=== PATIENT | female | born 1970 | race Caucasian/White ===

== ENCOUNTER → 2021-10-05 09:49 | Outpatient (CLI) | payer OTHER, SELFPAY ==
--- NOTE | ~2021-10-05 | CT_ITS ---
EXAMINATION: CT pelvis wo con DATE: 10/05/2021 10:16 INDICATION: Right inguinal mass/swelling. TECHNIQUE: High resolution computed tomography (CT) of the pelvis was performed without intravenous c ontrast. Additional sagittal and coronal reconstructions were performed. Automated exposure control a nd iterative reconstruction technique were employed. The dose-length product was 731.50 mGy-cm. COMPARISON: None FINDINGS: Status post appendectomy with several surgical clips. The tip of the cecum. Visualized portion of the bowels are normal. Bladder is normal. The uterus is not identified and has likely been surgically re sected. No free fluid in the pelvis. No inguinal hernia or other abnormal masses or fluid collections identified. Mild osteoarthritis at the bilateral hips, sacral iliac joints and lower lumbar facet diony ints. IMPRESSION: 1. No pathologically enlarged lymphadenopathy, inguinal hernia or other abnormal masses or fluid mike ections identified. Reviewed, dictated and finalized at location B. IMPRESSION: 1. No pathologically enlarged lymphadenopathy, inguinal hernia or other abnorma l masses or fluid collections identified.
== END ==
PROVIDERS: PCP Family Medicine Sports Medicine; Visit Provider Surgery
DX: R19.09 Other intra-abdominal and pelvic swelling, mass and lump (principal); M16.0 Bilateral primary osteoarthritis of hip; M47.817 Spondylosis without myelopathy or radiculopathy, lumbosacral region
CPT/HCPCS: 72192

== ENCOUNTER 2023-02-07 18:38 | Emergency (ER) | payer OTHER, SELFPAY ==
--- NOTE | ~2023-02-07 | XR_ITS ---
EXAMINATION: XR chest 2V DATE: 02/07/2023 19:06 INDICATION: Chest pain. TECHNIQUE: Frontal and lateral views of the chest were obtained. COMPARISON: Chest single view 07/29/2007 FINDINGS: There is no pneumonia, pleural effusion, or pneumothorax. The heart size is normal. Surgica l clips in the right upper quadrant are likely from cholecystectomy. IMPRESSION: 1. No acute cardiopulmonary disease. Reviewed, dictated and finalized at location E.
--- NOTE | ~2023-02-07 | CT_ITS ---
Non-contrast Head CT History: Dizziness, numbness Technique: Axial non-contrast imaging of the brain was performed. Dose reduction technique was used on this scan by utilizing automated exposure control and iterative reconstruction technique. The dose -length product (DLP) was 605.33 mGy-cm. Findings: There is no evidence of intracranial hemorrhage, mass lesion, or acute infarct. Brain par enchyma appears normal. The ventricles and subarachnoid spaces are normal in size. The calvarium ap pears normal. The visualized paranasal sinuses and mastoid air cells are clear. Impression: No significant abnormality seen. Reviewed, dictated and finalized at location . Impression: No significant abnormality seen.
--- NOTE | 2023-02-07 18:39 | ECG_ITS ---
Measurements Intervals [place] Rate: 66 P: 4 [place]: 177 QRS: -9 QRSD: 79 T: -8 QT: 397 QTc: 416 Interpretive Statements SINUS RHYTHM LOW QRS VOLTAGE IN PRECORDIAL LEADS CANNOT RULE OUT SEPTAL INFARCT, AGE INDETERMINATE INFERIOR INFARCT, AGE INDETERMINATE ABNORMAL ECG NO PREVIOUS ECG AVAILABLE FOR COMPARISON Electronically Signed On 02-08-2023 6:41:32 CDT by Jim Adams D.O.
[2023-02-07 18:41] VITALS: BP 107/57; PULSE 70; RESP 18; TEMP 36.3
[2023-02-07 21:10] VITALS: BP 112/73; PULSE 69; RESP 18; TEMP 36.3; O2SAT 96
[2023-02-07 23:12] LABS: Basophils Percent Auto 0.1 % (0.2-1.2); Eosinophils Absolute Auto 0.3 K/mm3 (0-0.3); Eosinophils Percent Auto 4.3 % (0-4.4); Hematocrit 39.7 % (37.0-47.0); Hemoglobin 12.7 g/dL (12.0-15.0); Immature Granulocyte Absolute 0.01 K/mm3 (0.00-0.031); Immature Granulocyte Percent A 0.1 % (0-0.5); Lymphocytes Absolute Auto 2.64 K/mm3 (0.9-3.2); Lymphocytes Percent Auto 39.4 % (18.3-44.2); Mean Corpuscular Hemoglobin 28.2 pg (26-34); Mean Corpuscular Volume 88.2 fl (80-100); Mean Platelet Volume 9.9 fl (7.4-10.4); Monocytes Absolute Auto 0.6 K/mm3 (0.1-0.6); Monocytes Percent Auto 8.4 % (2.6-8.5); Neutrophils Absolute Auto 3.2 K/mm3 (1.3-6.7); Neutrophils Percent Auto 47.7 % (45.5-73.1); Platelet Count Result 358 k/mm3 (150-375); Red Cell Distribution Width 14.7 % (11.5-14.5); White Blood Count 6.7 K/mm3 (4.5-10.0)
[2023-02-07 23:23] LABS: Alanine Aminotransferase 30 U/L (6-35); Albumin Level 4.3 g/dL (3.5-5.1); Alkaline Phosphatase 92 U/L (38-126); Anion Gap 7 mmol/L (8-16); Aspartate Amino Transferase 27 U/L (14-36); Bilirubin,Total 0.3 mg/dL (0.2-1.3); Blood Urea Nitrogen 17 mg/dL (7-17); Carbon Dioxide 27 mmol/L (22-30); Chloride 104 mmol/L (98-107); Estimated CRCL calculation 91 ml/min; Estimated Glomerular Filt Rate > 60; Glucose 108 mg/dL (65-110); Lipase 116 U/L (23-300); Potassium 4.4 mmol/L (3.4-5.0); Sodium 138 mmol/L (137-145)
[2023-02-07 23:25] LABS: Prothrombin Time 13.1 Seconds (11.1-14.7)
[2023-02-07 23:26] LABS: Partial Thromboplastin Time 34.8 SECONDS (22.3-36.8)
[2023-02-07 23:34] LABS: Troponin I < 0.012 ng/mL (0.000-0.034)
[2023-02-07] MEDS: ASPIRIN 81 MG CHEWABLE TABLET 324 MG PO (23:51)
[2023-02-07 23:58] VITALS: PULSE 65; RESP 19; O2SAT 98
[2023-02-08] VITALS (8 sets, daily range): BP systolic 104–106; BP diastolic 75–76; PULSE 61–68; RESP 15–20; O2SAT 98–100
[2023-02-08 00:59] LABS: Troponin I < 0.012 ng/mL (0.000-0.034)
--- NOTE | 2023-02-08 01:04 | ED.GENADULT ---
HPI - General Adult General Chief complaint: Chest Pain Stated complaint: chest pain Time Seen by Provider: 02/07/23 23:56 History of Present Illness HPI narrative: Patient 52-year-old female presents the emergency department with chief complaint of chest pain. Patient reports that the symptoms started around 10 or 11:00 this morning reports she also at that time had a change in the sensation of the left side of her face and the left upper chest patient states that she thought that she had facial asymmetry but looked at her face in the mirror and noticed no facial droop. The patient states that she has history of cardiomyopathy that was nonischemic the patient reports that she has had no new shortness of breath does report that her legs may have felt a little bit more swollen Related Data Home Medications Medication Instructions Recorded Confirmed aspirin 81 mg capsule 81 mg PO DAILY 09/25/21 10/20/21 cholecalciferol (vitamin D3) 125 125 mcg PO DAILY 09/25/21 10/20/21 mcg (5,000 unit) capsule empagliflozin 10 mg tablet 10 mg PO DAILY 09/25/21 10/20/21 (Jardiance) losartan 25 mg tablet 25 mg PO DAILY 09/25/21 10/20/21 metoprolol tartrate 50 mg tablet 50 mg PO BID 09/25/21 10/20/21 omeprazole 20 mg capsule,delayed 20 mg PO DAILY 09/25/21 10/20/21 release Allergies Allergy/AdvReac Type Severity Reaction Status Date / Time latex Allergy Unknown Rash Verified 02/07/23 23:55 sumatriptan [From Imitrex] AdvReac Intermediate Hallucinati Verified 02/07/23 23:55 ng Review of Systems Review of Systems: A 10 system review of systems was completed on the patient and is negative except for what is stated in the HPI. Nursing and ancillary documentation was reviewed. [facility] Past Medical History Medical History Heart disease Hypothyroid Surgical History Surgical History H/O abdominal hysterectomy H/O laparoscopy H/O removal of cyst cyst removal from neck cyst removal from wrist x2 History of cholecystectomy Family History Family History Father Hypertension Heart disease COPD (chronic obstructive pulmonary disease) Mother Acute myocardial infarction Cerebrovascular accident Social History Social History Smoking status: Never smoker Alcohol intake: current Alcohol use details: rare Living arrangements: with family Occupation/Education: occupation 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 HEAD: Normocephalic, atraumatic. EYES: PERRLA and EOMI. ENT: Nares clear, no rhinorrhea or epistaxis. Mucous membranes moist. NECK: Supple. CHEST: Clear to auscultation. No respiratory distress. HEART: Regular rate and rhythm. No murmur heard. Normal peripheral pulses. ABDOMEN: Soft, nontender, nondistended, normal active bowel sounds. EXTREMITIES: Normal range of motion. No edema. SKIN: Warm, dry, no rash. NEURO: No focal deficits. Alert and oriented x3. NIH 0 PSYCH: Normal mood and affect. Course Vital Signs Vital signs: Vital Signs Temperature 36.3 C L 02/07/23 18:41 Pulse Rate 70 02/07/23 18:41 Respiratory Rate 18 02/07/23 18:41 Blood Pressure 107/57 L 02/07/23 18:41 Temperature 36.3 C L 02/07/23 21:10 Pulse Rate 61 02/08/23 02:02 Respiratory Rate 19 02/08/23 02:02 Blood Pressure 106/75 02/08/23 02:01 Pulse Oximetry 100 02/08/23 02:02 Medical Decision Making [facility] Narrative Medical decision making narrative: Differential diagnosis includes ACS, atypical chest pain, CHF, The patient currently has an NIH of 0 the patient's symptoms began greater than 4 hours prior to arrival and the patient
[2023-02-08 01:30] LABS: NT Pro B Type Natriuretic Pept 58 pg/mL (19.9-100)
== END 2023-02-08 02:57 | disposition home or self-care (01) ==
PROVIDERS: Emergency Medicine; Emergency Provider Emergency Medicine; PCP Family Medicine Sports Medicine
DX: R07.89 Other chest pain (principal); I51.9 Heart disease, unspecified; E03.9 Hypothyroidism, unspecified; Z90.710 Acquired absence of both cervix and uterus; Z90.49 Acquired absence of other specified parts of digestive tract; Z79.82 Long term (current) use of aspirin; R94.31 Abnormal electrocardiogram [ECG] [EKG]
CPT/HCPCS: 36415; 70450; 71046; 80053; 83690; 83880; 84484; 85025; 85610; 85730; 93005; 99284; A9270

== ENCOUNTER 2024-11-05 13:57 | Outpatient (CLI) | payer OTHER, SELFPAY ==
--- NOTE | ~2024-11-05 | MM_ITS ---
EXAMINATION: MM screening gladys BI w elton HISTORY: Screening TECHNIQUE: Craniocaudal and mediolateral oblique 3-D tomosynthesis images were obtained and synthetic 2-D images were generated. CAD analysis was submitted and interpreted. COMPARISON: No prior mammogram is available for comparison at this institution. BREAST PARENCHYMAL COMPOSITION: Not dense: There are scattered areas of fibroglandular density. FINDINGS: There is no evidence of suspicious mass, calcification, or architectural distortion to sugg est malignancy in either breast. There has been no suspicious interval change. IMPRESSION: 1. No mammographic evidence of malignancy. 2. Recommend routine screening mammography in one year. BI-RADS Category 1: Negative Reviewed, dictated and finalized at location A.
--- OUTSIDE RECORDS SUMMARY | 2024-11-05 14:03 | XMS_ITS | Encounter Summary ---
Author Organization [facility] Healthcare Address [address] [place] [address] Care Team Providers Care Handle Machine Operator Name Role Phone Mayda Lantigua DO Primary Care Provider [phone] Joseph Farley MD PhD Unavailable + Cori Nunez RN Unavailable Unavaila Chrystal Coto RN Unavailable Unavailable Luis Angel Queen MD Unavailable Reason for Visit * Auth/Cert (Routine) Specialty Diagnoses / Procedures Referred By Contac t Referred To Contact Diagnoses MASS RIGHT GROIN Procedures WI EXC B9 LESION MRGN XCP SK TG T/A/L 0.6-1.0 CM EXCISIONAL BIOPSY MASS RIGHT GROIN Referral ID Status Reason Start Date Expiration Date Visits Re quested Visits Authorized [id number] 1 1 Encounter Details Date Type Department Care Team (Late st Contact Info) Description 11/04/2024 8:24 AM CDT Anesthesia Event [facility] OR [address] [place] [id number] Trung Ulrich MD [address] [place] [phone] Mikie Whitfield MD [address] [place] [address] [place] [address] Anesthesia Record Procedure Summary Procedure Name Responsible Anesthesiologist Anesthesia Start Time Anesthesia Stop Time EXCISIONAL BIOPSY MASS RIGHT GROIN (Right: Groin) Trung Ulrich MD 11/04/24 0824 11/04/24 1109 Events Date Time Event Comment 11/04/2024 0711 0824 An Start 0824 An Start Data 0824 In Room 0828 An Induction The patient was reevaluated immediately before moderate or deep sedation use and before anesthesia induction. 0829 An Intubation 0831 Anesthesia Ready 0843 Proc Start 1059 Proc Fin 1102 An Extubation 1102 an stop data 1104 Out of Room 1109 Handoff to RN I completed my handoff to the receiving nurse during which we: 1. Patient identified 2. Responsible provider identified 3. Pertinent medical history reviewed 4. Procedure type and surgical course discussed 5. Intraoperative anesthetic management and any significant issues discussed 6. Expectations and concerns for postop period discussed 7. Questions solicited from receiving nurse 8. Patient disposition at the time of handoff: No value filed. 1109 An Stop Meds Name Total midazolam 1 mg/mL 2 mg propofol 300 mg lidocaine (cardiac) syringe 2 % 3 mL fentaNYL 50 mcg/mL PF 200 mcg ondansetron PF 4 mg dexAMETHasone 4 mg/mL 4 mg phenylephrine injection 100 mcg/mL 600 m cg ceFAZolin (ANCEF) 1 gram/10 mL in steril e water (premix) 3,000 mg 3,000 mg Lactated Ringer's (LR) infusion 800 mL * Agents Name O2% N2O O2 N2O Air Sevoflurane Inspired Sevoflurane * Blood No blood administrations on file. Lines, Drains, and Airways Type Details Placement Removal Wound 11/04/24; 09; N; Incision; Groin; Anterior, Right 11/04/24 09 by Dinora Le RN Peripheral IV Placement Date: 11/04/24; Placement Time: 07; Catheter Size: 22 G; Orientation: Left, Posterior; Location: Hand; Site Prep: Chlorhexidine; Technique: Anatomical landmarks; Inserted by: Christopher ALVARADO; Insertion Attempts: 1; Patient Tolerance: Tolerated well; Removal Date: 11/04/24; Removal Time: 1505; Removal Reason: Discharge 11/04/24 0712 by Estephanie Purcell RN 11/04/24 1505 by Fatou Morgan RN Supraglottic Airway Placement Date: 11/04/24; Placement Time: 0834 (created via procedure documentation); Mask Ventilation: 0; Size: 4; Insertion Attempts: 1; Removal Date: 11/04/24; Removal Time: 11011/04/24 0834 by Vu Sands CRNA 11/04/24 110 by Vu Sands CRNA documented in this encounter Social History Tobacco Use Types Packs/Day Years Used Date Smoking Tobacco: Never Smokeless Tobacco: Never Alcohol Use Standard Drinks/Week Comments Yes 0 (1 standard drink = 0.6 oz pur e alcohol) socially only AUDIT-C Answer Date Recorded Q1: How often do you have a drink containing alcohol? Never 11/04/2024 Q2: How many drinks containi ng alcohol do you have on a typical day when you are drinking? Patient does not drink Q3: How often do you have si x or more drinks on one occasion? Never 11/04/2024 Personal Safety Answer Date Recorded Have you ever been in or are you currently in a harmful physical or emotional relationship or is someone making you feel afraid or unsafe? Denies 11/04/2024 Comments No Sex and Gender Information Value Date Recorded Sex Assigned at Not on file Legal Sex Female 8:25 PM BUILDING TECH Gender Identity Female 06/14/2021 9:07 AM BUILDING TECH Sexual Orientation Straight 11/25/2023 1: 45 PM CDT documented as of this encounter Functional Status documented as of this encounter OR Notes * Anesthesia Postprocedure Evaluation - Trung Ulrich MD - 11/04/2024 11:35 AM CDT Patient: Zelda Moore Procedure Summary Date: 11/04/24 Room / Location: [facility] / [facility] Anesthesia Start: 823 Anesthesia Stop: 1108 Procedure: EXCISIONAL BIOPSY MASS RIGHT GROIN (Right: Groin) Diagnosis: (MASS RIGHT GROIN) Surgeons: Luis Angel Queen MD Responsible Provider: Trung Ulrich MD Anesthesia Type: general ASA Status: 2 Anesthesia Type: general Anesthesia Post Evaluation Patient location during evaluation: PACU Patient participation: complete - patient participated Level of consciousness: fully awake Pain management: adequate Airway patency: adequate Cardiovascular status: acceptable Respiratory status: acceptable Hydration status: acceptable Pt is: normothermic Comments: BP 104/68. Temp 36.5 Pulse 74 Resp 12 SpO2 96% RA No notable events documented. * Anesthesia Procedure Notes - Vu Sands CRNA - 11/04/2024 8:34 AM CDTAssociated Order(s): Airway Airway Patient location: OR Urgency: elective Indications for airway management: anesthesia Difficult airway: no Staff: Placed by: MAKEUP ARTISTRY INSTRUCTOR: Vu Sands CRNA Emergent airway documentation: Risks and benefits discussed: yes Consent obtained: yes Consent given by: patient Airway prep: Preoxygenated: yes Patient position: sniffing Mask difficulty assessment: 0 - not attempted Spontaneous ventilation during airway: absent Sedation level during airway: deep Final airway details: Final airway type: supraglottic airway Final supraglottic airway: classic SGA size: 4 Number of attempts: 1 * Anesthesia Preprocedure Evaluation - Trung Ulrich MD - 11/04/2024 7:03 AM CDT Images from the original note were not included. Anesthesia Evaluation Zelda Moore is a 54 y.o. female EXCISIONAL BIOPSY MASS RIGHT GROIN (Right: Groin) * No Diagnosis Codes entered * HISTORY Past Medical History Information obtained from: patient and chart. Information obtained during: In Person Neurological Neuro/Psych system: negative Cardiovascular + Hypertension + CHF + Atrial fibrillation/flutter - + Other arrhythmia - PVCs. Comments: Echo 12/18/23 LA and RA normal in size. Normal LV size with mild global LV dysfunction. LVEF 51%. Normal LV wall thickness/mass. Strain quality is inadequate for accurate reporting. Normal RV size with normal RVSF. No significant valvular abnormalities. Diastiolic flow in distal aortic arch of unclear clinical significance. Diastolic function: Grade I, altered relax. w/N. LA pres. Aortic root normal in size. IVC is small and collapses which supports decreased venous pressures. Trace to small pericardial effusion vs fat pad. Unable to estimate PASP d/t inadequate TR jet. On c/w prior study on 02/28/22, LVSF appears similar. MCT 12/11/23 NSR w PVCs The patient's monitoring period was 12/11/2023 - 12/17/2023. Baseline sample showed Sinus Rhythm w/PVCs (1 in 1 min)/Artifact with a heart rate of 86.6 bpm. There were 0 critical, 0 serious, and 12 stable events that occurred. Echo 02/28/22 LV cavity size is normal. Concentric LV remodeling. Mild global LV syst dysfunction. EF 47%. Mild RV cavity enlargement. LA is normal. Mild MR. Normal Inferior vena cava. Small peric eff v. fat pad. CT Calcium 09/11/21 1. No evidence of calcified or noncalcified atherosclerotic plaque on the coronary arteries. No coronary artery stenosis. 2. The calculated calcium score is 0. EKG 06/21/21 EKG: SR with PVC Respiratory Pertinent negatives: non-smoker Respiratory system: negative Hepatic / Heme Pertinent negatives: liver disease Gastrointestinal + GERD (well controlled) Renal / Pertinent negatives: renal disease Endocrine / Other + Thyroid disease (s/p partial thyroidectomy) - hypothyroidism + Obesity (BMI >30) Pertinent negatives: diabetes mellitus Functional Capacity Functional capacity limited by a non-cardiovascular, non-pulmonary condition. Review of Systems Pertinent negatives: productive cough; wheezing; SOB; recent cold/flu; fever and chest pain Patient Active Problem List Diagnosis Date Noted Nonischemic cardiomyopathy (HCC) 10/30/2018 Hypothyroidism (acquired) 10/30/2018 Arthritis 10/30/2018 LVH (left ventricular hypertrophy) 10/06/2024 NSVT (nonsustained ventricular tachycardia) (HCC) 12/25/2018 Chronic systolic heart failure (HCC) 10/31/2018 Vertigo 11/18/2017 Anemia 10/23/2014 Essential hypertension 07/07/2012 Gastro-esophageal reflux disease without esophagitis 11/14/2011 Past Medical History: Diagnosis Date Anemia 10/23/2014 Arthritis 10/30/2018 Essential hypertension 07/07/2012 Note: Uncontrolled Gastro-esophageal reflux disease without esophagitis 11/14/2011 Hypothyroidism (acquired) 10/30/2018 LVH (left ventricular hypertrophy) 10/06/2024 Motion sickness Nonischemic cardiomyopathy (HCC) 10/30/2018 Obesity Vertigo 11/18/2017 Date Onset: 11/18/2017 Past Surgical History: Procedure Laterality Date CHOLECYSTECTOMY also appendectomy CYSTECTOMY x3, right wrist twice, neck DIAGNOSTIC LAPAROSCOPY HYSTERECTOMY total KYPHOPLASTY THYROIDECTOMY, PARTIAL OB History No obstetric history on file. Allergies Allergen Reactions Latex Rash and Unknown Sumatriptan Hallucinations and Unknown Other reaction(s): dysesthesia Med List Status: Nurse Complete Set By: Noel Villalta RN at 10/13/2024 2:44 PM Taking? Last Dose Start Date End Date Provider aspirin 81 mg enteric coated tablet -- -- -- Bang Ruelas MD cholecalciferol (VITAMIN D-3) 5,000 unit capsule -- 09/26/18 -- Bang Ruelas MD cyanocobalamin (Vitamin B-12) 2,000 mcg tablet -- -- -- Bang Ruelas MD DivigeL 0.25 mg/0.25 gram (0.1 %) gel in packet -- 02/07/22 -- Bang Ruelas MD Entresto 24-26 mg tablet -- 06/29/24 -- Joseph Farley MD PhD TAKE 1 TABLET BY MOUTH TWICE A DAY famotidine (PEPCID) 40 mg tablet -- 06/26/24 -- Bang Ruelas MD Farxiga 10 mg tablet -- 09/30/24 -- Joseph Farley MD PhD TAKE 1 TABLET BY MOUTH EVERY DAY furosemide (LASIX) 20 mg tablet -- 09/30/24 -- Joseph Farley MD PhD Take 1 tablet (20 mg total) by mouth daily metoprolol XL (TOPROL-XL) 50 mg extended release tablet -- 06/29/24 -- Joseph Farley MD PhD TAKE 1 TABLET BY MOUTH TWICE A DAY multivitamin tablet -- -- -- Bang Ruelas MD pantoprazole DR (PROTONIX) 40 mg EC tablet -- 08/13/22 -- Bang Ruelas MD spironolactone (ALDACTONE) 25 mg tablet -- 06/29/24 06/29/25 Joseph Farley MD PhD TAKE 1 TABLET (25 MG TOTAL) BY MOUTH DAILY. Current Facility-Administered Medications: acetaminophen (TYLENOL) tablet 975 mg, 975 mg, oral, Once ceFAZolin (ANCEF) 1 gram/10 mL in sterile water (premix) 3,000 mg, 3,000 mg, intravenous, Once famotidine (PEPCID) tablet 20 mg, 20 mg, oral, Once Lactated Ringer's (LR) infusion, 30 mL/hr, intravenous, Continuous lidocaine (PF) (XYLOCAINE) 10 mg/mL (1 %) preservative free injection 2-10 mg, 0.2-1 mL, other, Once PRN Social History Tobacco Use Smoking Status Never Smokeless Tobacco Never Alcohol Use: Not At Risk (10/13/2024) AUDIT-C Frequency of Alcohol Consumption: Never Average Number of Drinks: Patient does not drink Frequency of Binge Drinking: Never Substance and Sexual Activity Drug Use Never Family History Problem Relation Age of Onset Heart disease Mother Hypertension Father Heart disease Father COPD Father Emphysema Father There were no vitals filed for this visit. PT: No results found for requested labs within last 30 days. INR: No results found for requested labs within last 30 days. APTT: No results found for requested labs within last 30 days. Hgb A1C: No results found for requested labs within last 30 days. CBC RBC: No results found for requested labs within last 30 days. RDW: No results found for requested labs within last 30 days. MCHC: No results found for requested labs within last 30 days. MCH: No results found for requested labs within last 30 days. MCV: No results found for requested labs within last 30 days. Hct: No results found for requested labs within last 30 days. Hgb: No results found for requested labs within last 30 days. WBC: No results found for requested labs within last 30 days. MPV: No results found for requested labs within last 30 days. Platelets: No results found for requested labs within last 30 days. RDW CV: No results found for requested labs within last 30 days. RDW Sd: No results found for requested labs within last 30 days. BMP Glucose: No results found for requested labs within last 30 days. Calcium: No results found for requested labs within last 30 days. Sodium: No results found for requested labs within last 30 days. Potassium: No results found for requested labs within last 30 days. CO2: No results found for requested labs within last 30 days. Chloride: No results found for requested labs within last 30 days. BUN: No results found for requested labs within last 30 days. Creatinine: No results found for requested labs within last 30 days. STOP-Bang Total Score: 3 DOS Physical Exam Medical history, medications, and allergies reviewed. Attestation: This PAT evaluation 11/04/2024. Airway Exam: Mallampati: III Cervical ROM: FROM TM distance: normal Cardiovascular Exam: Rate: regular Rhythm: regular Pulmonary Exam: LCTA, bilat EENT Exam: trachea midline Dental Exam: Appears intact Current state: Patient's current state is cooperative. Anesthesia Plan ASA 2 My patient is approved for the Anesthesia Controlled Medication protocol when under care of a MAKEUP ARTISTRY INSTRUCTOR Planned anesthesia: General Induction: Induction: intravenous. Informed Consent: Discussed plan with MAKEUP ARTISTRY INSTRUCTOR. Anesthesia plan and risks discussed with patient. Consent and Attending signature: I and/or my designee have discussed the anesthesia plan, benefits, possible alternatives, parental presence at time of induction (if indicated), and clinically relevant risks that may include dental injury, unintentional awareness, and/or other complications. The patient and/or parent/legal guardian understand, and agree to proceed. All questions answered. documented in this encounter Plan of Treatment Not on file documented as of this encounter Procedures Procedure Name Priority Date/Time Associated Diagnosis Comments WI AN PROCEDURE PLACEHOLDER Routine 11/04/2024 8:34 AM CDT WI AN ELECTIVE SUPRAGLOTTIC AIRWAY Routine 11/04/2024 8:34 AM CDT documented in this encounter Results * WI AN ELECTIVE SUPRAGLOTTIC AIRWAY, WI AN PROCEDURE PLACEHOLDER (11/04/2024 8:34 AM CDT) Narrative Vu Sands CRNA - 11/04/2024 8:34 AM CDT Vu Sands CRNA 11/04/2024 8:34 AM Airway Patient location: OR Urgency: elective Indications for airway management: anesthesia Difficult airway: no Staff: Placed by: MAKEUP ARTISTRY INSTRUCTOR: Vu Sands CRNA Emergent airway documentation: Risks and benefits discussed: yes Consent obtained: yes Consent given by: patient Airway prep: Preoxygenated: yes Patient position: sniffing Mask difficulty assessment: 0 - not attempted Spontaneous ventilation during airway: absent Sedation level during airway: deep Final airway details: Final airway type: supraglottic airway Final supraglottic airway: classic SGA size: 4 Number of attempts: 1 us Trung Ulrich MD ANESTHESIA ORDERABLES Final Resu lt documented in this encounter Visit Diagnoses Not on filedocumented in this encounter Administered Medications Inactive Administered Medications - up to 3 most recent administrations Medication Order MAR Action Action Date Dose Rate Site ceFAZolin (ANCEF) 1 gram/10 mL in sterile water (premix) 3,000 mg 3,000 mg, intravenous, at 600 mL/hr, Administer over 3 Minutes, Once, On Sat11/04/24 at 0715, For 1 dose, Pre-Op, Indications: Prophylaxis, SurgicalIndications:Prophylaxis , Surgical Given 11/04/2024 8:31 AM CDT 3,000 mg dexAMETHasone (DECADRON) 4 mg/mL injection intravenous, Administer over 2 Minutes, As needed, Starting on Sat11/04/24 at 0832, Anesthesia Intra-op Given 11/04/2024 8:32 AM CDT 4 mg fentaNYL (SUBLIMAZE) preservative free injection intravenous, As needed, Starting on Sat11/04/24 at 0830, Anesthesia Intra-op Given 11/04/2024 10:29 AM CDT 50 mcg Given 11/04/2024 9:47 AM CDT 50 mcg Given 11/04/2024 9:33 AM CDT 50 mcg Lactated Ringer's (LR) infusion 30 mL/hr, intravenous, Continuous, Starting on Sat11/04/24 at 0715, Pre-Op New Bag 11/04/2024 11:55 AM CDT 30 mL/hr 30 mL/ hr Restarted 11/04/2024 8:24 AM CDT New Bag 11/04/2024 7:16 AM CDT 30 mL/hr 30 mL/hr lidocaine (cardiac) (XYLOCAINE) preservative free injection intravenous, As needed, Starting on Sat11/04/24 at 0828, Anesthesia Intra-op, Indications: Ventricular ArrhythmiasIndications:Ventricular Arrhythmias Given 11/04/2024 8:28 AM CDT 3 mL midazolam (VERSED) 1 mg/mL injection intravenous, Administer over 2 Minutes, As needed, Starting on Sat11/04/24 at 0824, Anesthesia Intra-op Given 11/04/2024 8:24 AM CDT 2 mg ondansetron (ZOFRAN) injection intravenous, Administer over 2 Minutes, As needed, Starting on Sat11/04/24 at 0832, Anesthesia Intra-op Given 11/04/2024 8:32 AM CDT 4 mg phenylephrine (KRISTA-SYNEPHRINE) 1 mg/10 mL (100 mcg/mL) in sodium chloride 0.9% (premix) intravenous, As needed, Starting on Sat11/04/24 at 0840, Anesthesia Intra-op Given 11/04/2024 10:21 AM CDT 200 mc g Given 11/04/2024 8:48 AM CDT 200 mcg Given 11/04/2024 8:45 AM CDT 100 mcg propofoL (DIPRIVAN) 10 mg/mL IV intravenous, As needed, Starting on Sat11/04/24 at 0828, Anesthesia Intra-op Given 11/04/2024 9:30 AM CDT 50 mg Given 11/04/2024 9:11 AM CDT 50 mg Given 11/04/2024 8:28 AM CDT 200 mg documented in this encounter Care Teams Handle Machine Operator Relationship Specialty Start Date End Date GrzegorzMaydaDO [address] [place] [address] PCP - General Sports Medicine 10/17/18 Joseph Farley MD PhD [address] [facility] [place] [address] Cardiology 04/07/20 Cori Nunez, stranding supervisor Failure Coordinator 06/20/21 Chrystal Catherine, stranding supervisor Failure Coordinator 06/21/23 Luis Angel Queen MD [address] [place] [id number] Consulting Physician General Surgery 11/04/24 documented as of this encounter
--- OUTSIDE RECORDS SUMMARY | 2024-11-05 14:03 | XMS_ITS | Encounter Summary ---
Author Organization [facility] Address [address] [place] [address] Care Team Providers Care Process Supervisor Name Role Phone Mayda Lantigua DO Primary Care Provider [phone] Joseph Farley MD PhD Unavailable + Cori [...] Expiration Date Visits Re quested Visits Authorized [id number] 1 1 Encounter Details Date Type Department Care Team (Latest Contact Info) Description 11/04/2024 6:40 AM CDT - 11/04/2024 3:07 PM CDT Hospital Encounter [facility] OR [address] [place] [id number] Luis Angel Queen MD [address] [place] [id number] Right groin mass Discharge Disposition: Discharge to home or self care Social History Tobacco Use Types Packs/Day Years [...] on file 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 Gender Identity Female 06/14/2021 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 Sexual Orientation Straight 11/25/2023 1: 45 PM CDT documented as of this encounter Last Filed Vital Signs Vital Sign Reading Time Taken Comments Blood Pressure 101/68 11/04/2024 2:10 PM CDT Pulse 69 11/04/2024 3:00 PM CDT Temperature 36.4 C (97.5 F) 11/04/2024 12:40 PM CDT Respiratory Rate 16 11/04/2024 2:10 PM CDT Oxygen Saturation 100% 11/04/2024 3:00 PM CDT Inhaled Oxygen Concentration - - Weight 122.5 kg (270 lb) 10/13/2024 2:45 PM CDT Height 180.3 cm (5' 11) 10/13/2024 2:45 PM CDT Body Mass Index 37.66 10/13/2024 2:45 PM CDT documented in this encounter Functional Status * Audit-C Score Answer Date of Assessment Author 0 10/13/2024 2:48 PM CDT Nasra Villalta RN * Question Answer Date of Assessment Author Q1: How often do you have a drink containing alcohol? Never 11/04/2024 7:07 AM CDT Estephanie Purcell RN Q2: How many drinks containing alcohol do you have on a typical day when you are drinking? Patient does not drink 11/04/2024 7:07 AM CDT Estephanie Purcell RN Q3: How often do you have six or more drinks on one occasion? Never 10/13/2024 2:48 PM CDT Noel Villalta RN documented as of this encounter Discharge Instructions * Discharge Instructions* Luis Angel Queen MD - 11/04/2024 11:20 AM CDT Soft Tissue Surgery Diet: *You may resume your regular diet. ACTIVITY/WOUND: * Expect a fair amount of bruising and swelling. The skin may turn black and blue and even yellow. Call your physician if the degree of swelling seems abnormal. * As the local anesthesia wears off, expect mild to moderate discomfort at the surgical site, especially the night of and the day following your surgery. If you have severe pain unrelieved by narcotics, call your physician. * A low grade fever (up to 101 F) is not unusual for the first few days after surgery. After that, a temperature greater than 101 F should be reported to your physician. Increasing redness of the skin or foul smelling drainage from the wound should also be reported. * Do not perform strenuous activity for 2 weeks. * Rest the first day with short distance walks 2-3 times. Increase your activity daily. You may resume many of your normal activities the day after your surgery. A good guide is if it hurts - don't do it! * It is not a good idea to run or to do aerobic exercises or weight lifting for at least 14 days following your surgery. MEDICATIONS: * Restart home medications the day after surgery * You will be given prescribed pain medications. Take your pain medication as ordered with food. DONOT DRINK ALCOHOL, DRIVE A VEHICLE OR MAKE IMPORTANT DECISIONS WHEN TAKING NARCOTICS (Tylenol with Codeine, Oxycodone, Maupin etc.). You may take over the counter Tylenol with this medication or between other pain medications as desired, but do not exceed 3000mg daily. * You will be prescribed Motrin (Ibuprofen) which is a class of drug called NSAID's (eg: celebrex, ibuprofen or naproxen). You must use only one of these drugs in addition to the prescribed narcotic/pain medication, if you need additional pain control. Hopefully you will be able to transition to only using Motrin for pain control and stop taking the narcotic pain medication after the first few days if you need it at all. * You will be given a stool softener to take while taking prescribed pain medication. You may take over the counter miralax in addition to this if experiencing constipation. You may decrease or hold this medication if experiencing loose stools. * Drink plenty of water and walk to help avoid constipation. Wound Care: *Do not get the incision wet for the first 24 hours. After that, you may shower using soap and water letting it gently wash across the incisions. Pat the incisions dry. No swimming/baths/hot tubs for2 weeks. *The dressing is a purple colored surgical glue. It will fall off on its own usually after the first 2-3 weeks. If it has not fallen off after 3 weeks, you may remove it on your own. *Do not use any creams or ointments on the incisions. Follow up: * You will follow up in General Surgery Clinic in [address] Queen * If you are not given a follow up appointment at time of discharge, please call the clinic at [phone] to schedule an appointment for 2 week follow up * You may call the clinic for questions or concerns during normal business hours or the ER after hours Please call the clinic or go to the ER for any of the following (see list below) - Fever over 101 degrees by mouth. - Nausea or vomiting for more than 24 hours. - Pain unrelieved by medication. - Separation of wound edges. - Increasing bleeding or drainage from wound. - Severe swelling. - Redness around the surgical site that is warm to the touch or is accompanied by drainage or foul odor. * Attachments The following attachments cannot be sent through Care Everywhere. * Care After General Anesthesia (Discharge Care) (Honduran) * Skin Adhesive Care (Discharge Care) (Honduran) documented in this encounter Medications at Time of Discharge aspirin 81 mg enteric coated tablet Take 1 tablet (81 mg total) by mouth daily cholecalciferol (VITAMIN D-3) 5,000 unit capsule Take 1 capsule (5,000 Units total) by mouth daily 0 09/26/2018 cyanocobalamin (Vitamin B-12) 2,000 mcg tablet Take by mouth Entresto 24-26 mg tablet TAKE 1 TABLET BY MOUTH TWICE A DAY 180 tablet 3 06/29/2024 famotidine (PEPCID) 40 mg tablet Take 1 tablet (40 mg total) by mouth daily 06/26/2024 Farxiga 10 mg tablet TAKE 1 TABLET BY MOUTH EVERY DAY 90 tablet 3 09/30/2024 furosemide (LASIX) 20 mg tablet Take 1 tablet (20 mg total) by mouth daily 90 tablet 3 09/30/2024 metoprolol XL (TOPROL-XL) 50 mg extended release tablet TAKE 1 TABLET BY MOUTH TWICE A DAY 180 tablet 3 06/29/2024 multivitamin tablet Take 1 tablet by mouth daily pantoprazole DR (PROTONIX) 40 mg EC tablet Take 1 tablet (40 mg total) by mouth daily 08/13/2022 spironolactone (ALDACTONE) 25 mg tablet TAKE 1 TABLET (25 MG TOTAL) BY MOUTH DAILY. 90 tablet 3 06/29/2024 06/29/2025 docusate sodium (DOK) 100 mg tabletIndications :constipation Take 1 tablet (100 mg total) by mouth 2 (two) times a day for 10 days 20 tablet 11/04/2024 11/14/2024 ibuprofen (ADVIL,MOTRIN) 800 mg tablet Take 1 tablet (800 mg total) by mouth every 8 (eight) hours as needed for pain 90 tablet 11/04/2024 oxyCODONE (ROXICODONE) 5 mg immediate release tabletIndications :Pain Take 1 tablet (5 mg total) by mouth every 4 (four) hours as needed for pain 15 tablet 11/04/2024 documented as of this encounter Ordered Prescriptions Prescription Sig Dispense Quantity Refills Last Filled Start Date End Date ibuprofen (ADVIL,MOTRIN) 800 mg tablet Take 1 tablet (800 mg total) by mouth every 8 (eight) hours as needed for pain 90 tablet 11/04/2024 docusate sodium (DOK) 100 mg tabletIndications: constipation Take 1 tablet (100 mg total) by mouth 2 (two) times a day for 10 days 20 tablet 11/04/2024 11/14/2024 oxyCODONE (ROXICODONE) 5 mg immediate release tabletIndications: Pain Take 1 tablet (5 mg total) by mouth every 4 (four) hours as needed for pain 15 tablet 11/04/2024 documented in this encounter Discharge Disposition Disposition Code Departure Means Destination Comment s Discharge to home or self care documented in this encounter H&P Notes * Luis Angel Queen MD - 11/04/2024 7:53 AM CDT Zelda Moore 54 y.o. female Date of Service 11/04/2024 Lucius LantiguacyDO CC: right groin/labial mass HPI: 54 F with a large right groin/labial mass present for about 10 - 15 yrs. Slowly enlarging and pain up to 4/10 when pressed. Due to the location, it is irritating at all times. Smaller similar masses removed from her wrist x2 and her neck x1. Denies any changes in her health since last seen in clinic. PMH: Past Medical History: Diagnosis Date Anemia 10/23/2014 Arthritis 10/30/2018 Essential hypertension 07/07/2012 Note: Uncontrolled Gastro-esophageal reflux disease without esophagitis 11/14/2011 Hypothyroidism (acquired) 10/30/2018 LVH (left ventricular hypertrophy) 10/06/2024 Motion sickness Nonischemic cardiomyopathy (HCC) 10/30/2018 Obesity Vertigo 11/18/2017 Date Onset: 11/18/2017 PSH: Past Surgical History: Procedure Laterality Date CHOLECYSTECTOMY also appendectomy CYSTECTOMY x3, right wrist twice, neck DIAGNOSTIC LAPAROSCOPY HYSTERECTOMY total KYPHOPLASTY THYROIDECTOMY, PARTIAL Allergies: Allergies Allergen Reactions Latex Rash and Unknown Sumatriptan Hallucinations and Unknown Other reaction(s): dysesthesia Medications: Current Facility-Administered Medications Medication Dose Route Frequency Provider Last Rate Last Admin ceFAZolin (ANCEF) 1 gram/10 mL in sterile water (premix) 3,000 mg 3,000 mg intravenous Once Luis Angel Queen MD Lactated Ringer's (LR) infusion 30 mL/hr intravenous Continuous Mikie Whitfield MD 30 mL/hr at 11/04/24 0745 Rate Verify at 11/04/24 0745 lidocaine (PF) (XYLOCAINE) 10 mg/mL (1 %) preservative free injection 2-10 mg 0.2-1 mL other Once PRN Mikie Whitfield MD Family Hx: Family History Problem Relation Age of Onset Heart disease Mother Hypertension Father Heart disease Father COPD Father Emphysema Father Social Hx: Social History Tobacco Use Smoking status: Never Smokeless tobacco: Never Substance and Sexual Activity Drug use: Never Sexual activity: Not Currently Alcohol Use: Not At Risk (11/04/2024) AUDIT-C Frequency of Alcohol Consumption: Never Average Number of Drinks: Patient does not drink Frequency of Binge Drinking: Never Review of Symptoms: 10 point ROS is negative aside from that mentioned in HPI and PMH/PSH; PHYSICAL EXAM: Blood pressure 108/65, pulse 77, temperature 36.2 ??C (97.2 ??F), temperature source Temporal, resp. rate 16, height 180.3 cm (5' 11), weight 122.5 kg (270 lb), SpO2 96%. Body mass index is 37.66 kg/m??. GEN: Well developed, alert, no acute distress, answers questions appropriately SKIN: No obvious lesions, rash; no jaundice HEENT: Neck supple, no masses, ears normal, PERRL, EOMI, MMM CHEST: Unlabored breathing, no accessory muscle use HEART: Regular rhythm, 2+ radial ABDOMEN: Soft, NT, ND, large right groin/labial soft subcutaneous mass approximately 14 x 10 x 8 cm EXT: No clubbing, cyanosis; edema, no deformities or obvious motor or range of motion deficits NEURO: GCS 15, no focal deficit, sensation grossly intact LYMPHATICS: No palpable lymphadenopathy BREAST: deferred RECTAL: deferred LABS: I reviewed the recent laboratory results No lab exists for component: AGAP, CR, CA, TBILI, ALKP, APPT IMAGING: Results for orders placed during the hospital encounter of 10/19/24 MRI Pelvis W WO Contrast Narrative EXAMINATION: MRI PELVIS W WO CONTRAST HISTORY: Right groin mass Technique: Multiplanar multisequence MR examination of the pelvis was performed after the administration of 20 mL of Dotarem intravenous contrast according to standard protocol. FINDINGS: No prior examination available for comparison. The location of the queried mass was not specified other than in the region of the right groin and no skin marker was placed to indicate any palpable lesion. Normal marrow signal intensity without fracture, stress reaction, avascular necrosis or suspicious marrow replacing lesion. No suspicious area of soft tissue nodular or masslike enhancement. No solid, cystic or lipomatous mass lesion identified. Specifically, no mass or suspicious lymphadenopathy in the area of the right groin/right inguinal region. No obvious inguinal hernia. Additionally, portions of the anterior abdominal wall on precontrast sequences are obscured by a saturation band, however, there is no definite anterior abdominal wall mass lesion on postcontrast sequences with a saturation band was removed. There is mild bilateral hip chondrosis without subchondral edema or joint effusion. There is mild degenerative disc disease at L5-S1 with lower lumbar facet osteoarthritis. The sacroiliac joints are normal and symmetric. Pubic symphysis is normal. Iliopsoas muscles and tendons are normal. The gluteal and proximal hamstring tendons are grossly intact. There is mild bilateral greater trochanteric bursitis. There is a mild focal fatty infiltration of the bilateral gluteus minimus muscles without intramuscular mass lesion. Moderate paraspinal fatty muscular atrophy the remainder of the pelvic musculature is normal in bulk and signal. Piriformis muscles are symmetric. Sciatic neurovascular bundles are normal. No pelvic lymphadenopathy. Scattered colonic diverticulosis without diverticulitis. Changes of prior hysterectomy. Impression 1. No suspicious mass lesion or lymphadenopathy in the pelvis. Dictated by: Colton Lowe M.D. The radiology attending physician has personally reviewed this study, and had reviewed and/or edited this written report and agrees with it. Electronically signed by: Liang Ware M.D. I reviewed the digital images of the patient's imaging studies IMPRESSION: 54 F with a large right groin/labial mass. Discussed in detail the p/I/a/r/b including recurrence, bleeding, infection, numbness, chronic pain, damage to surrounding structures, need for additional procedures. She acknowledged understanding and all questions were answered. She elected to proceed with excisional biopsy of the mass PLAN: OR for excisional biopsy of right groin mass Luis Angel Queen MD 11/04/2024 7:53 AM documented in this encounter Miscellaneous Notes * Op Note - Luis Angel Queen MD - 11/04/2024 9:15 AM CDT OP NOTE Zelda D Festus 11/04/2024 Pre-operative Diagnosis: Right groin/labial lipoma Post-operative Diagnosis: Same Procedure: Excisional biopsy of right groin/labial lipoma Anesthesia: General Surgeon: Luis Angel Queen MD Main Galley Scullion: [email or web address] Technician: Dinora Le RN Scrub: Harry Bhatt [facility]: Steph Gill CRNFA; Enriqueta Cooper CRNFA FLOAT: Mallory Chandler RN Anesthesia: General Anesthesiologist: Trung Ulrich MD DIRECTOR OF CARDIOLOGY: Vu Sands CRNA Specimen: Right groin mass marked short superior, long lateral, and double deep Drains: None EBL: 20 cc Complications: None Findings: Large 17 x 12 x 5 cm lipomatous fatty mass. No large capsule, but large conglomeration ofsmaller lipomas combining to make on large unit. It was removed as a single unit. Operative Details: Please refer to the history and physical for the indications of the procedure. The patient was prepped and draped in the usual sterile fashion lying supine on the operating table. SCDs were in place and functioning prior to induction of anesthesia. The patient received 3g Ancefpre-operative antibiotics prior to incision. A time-out was held prior to initiating the procedure. A 7 cm incision was made in the right groin over the mass. With careful dissection with blunt and sharp dissection, the mass was isolated. It was a large 17 x 12 x 5 cm lipomatous fatty mass. No large capsule, but large conglomeration of smaller lipomas combining to make on large unit. It was remove d as a single unit. I marked it short superior, long lateral, and double deep. Complete hemostasis was achieved. I took some redundant skin to allow for a cosmetic closure. The incision was closed with deep 3-O vicryl sutures to close the deep space which were interrupted. interrupted 3-O vicryl deep dermal sutures and a running 4-O monocryl subcuticular suture. A sterile dermabond dressing was placed. Instrument, sponge, and needle counts were correct at the closure and at the completion of the case. There were no intra-operative complications. Luis Angel Queen MD 1:11 AM * Perioperative Nursing Note - Miriam Cheatham RN - 10/20/2024 7:33 AM CDT Images from the original note were not included. * Perioperative Nursing Note - Noel Villalta RN - 10/13/2024 2:53 PM CDT Images from the original note were not included. Pre Anesthesia Testing Perioperative Nursing Note Telephone Preoperative Evaluation - TELEPHONE ONLY, NO PHYSICAL EXAM - MHE PAT Date: 10/13/24 PAT RN completed assessment with the patient. Zelda Moore is a 54 y.o. female EXCISIONAL BIOPSY MASS RIGHT GROIN (Right: Groin) * No Diagnosis Codes entered * Vitals: 10/13/24 1445 Weight: 122.5 kg (270 lb) Height: 180.3 cm (5' 11) Social History Tobacco Use Smoking Status Never Smokeless Tobacco Never Substance and Sexual Activity Drug Use Never Alcohol Use Q1: How often do you have a drink containing alcohol?: Never Q2: How many drinks containing alcohol do you have on a typical day when you are drinking?: Patientdoes not drink Q3: How often do you have six or more drinks on one occasion?: Never Past Medical History: Diagnosis Date Anemia 10/23/2014 [...] Sumatriptan Hallucinations and Unknown Other reaction(s): dysesthesia CURRENT MEDICATIONS Med List Status: Nurse Complete Set By: Noel Villalta RN at 10/13/2024 2:44 PM Taking? Last Dose Start Date End Date Provider aspirin 81 mg enteric coated tablet -- -- -- aBng Ruelas MD cholecalciferol (VITAMIN D-3) 5,000 unit [...] TABLET (25 MG TOTAL) BY MOUTH DAILY. -- Implants No active implants to display in this view. TRAVEL/EXPOSURE Travel Screening Have you traveled outside the [place] in the last 6 months?: No SCREENINGS STOP-Bang Total Score: 3 NUTRITION PATIENT CARE PLANNING Discharge Planning Type of Residence: Private residence Living Arrangements: Spouse/significant other Support Systems: Spouse/significant other Patient expects to be discharged to: Private residence ADDITIONAL COMMENTS/ FOLLOW UP * Pre-Procedure Instructions - Noel Villalta RN - 10/13/2024 2:49 PM CDT Images from the original note were not included. [address] [address] Procedure Date: 10/26/2024 Procedure: EXCISIONAL BIOPSY MASS RIGHT GROIN (Right: Groin) Surgeons and Role: * Luis Angel Queen MD - Primary Surgery Reminder Checklist: Please arrive to [facility] for scheduled surgeryon Sat10/26/24 at 6:45 am. If the surgeon's office tells you to arrive at a different time after wehave given you instructions, please follow their instructions. Pre testing: Sat10/14/24 at 10:20 am [address] park in the first parking lot on the LEFT. Enter through the Main Entrance and check in at [facility] (to the left of the information desk). ONE - TWO WEEKS BEFORE YOUR PROCEDURE You may take TYLENOL (ACETAMINOPHEN) as needed for pain. PLEASE FOLLOW YOUR SURGEON'S GUIDELINES REGARDING IBUPROFEN, ALEVE, MULTIVITAMINS, HERBAL SUPPLEMENTS, FISH OIL AND VITAMIN E. YOU MAY BE REQUIRED TO HOLD THESE FOR ONE-TWO WEEKS BEFORE SURGERY. EVENING BEFORE YOUR PROCEDURE Shower with Antibacterial soap followed by Hibiclens soap the evening before your surgery. After showering, do not apply any lotions, colognes, oils, deodorant, powder, or make-up Antibacterial Soap Examples: Dial or Safeguard. Hibiclens soap may be purchased at any store or pharmacy that carries soap. Look in the pharmacy/wound care section. If you would like to come to [facility] we can give you a bottle forFREE. Hours: Saturday - Saturday 8 AM - 4:30PM. Go to the main entrance and ask the front office administrator for Hibiclens Soap. If you go to [facility], park underneath Entrance A drive thru and call [phone] and ask for the surgery soap. We will bring it out to your car. Hibiclens, trusted by hospitals for over 40 years as a pre-operative skin wash, can help reduce therisk of surgical site infections (SSIs) caused by germs that live on the skin. DO NOT eat food or drink any liquid you cannot see thru after midnight (this includes gum, mints, hard candy, and chewable antacids). MORNING OF YOUR PROCEDURE May have clear liquids up until 4:45 AM. This includes, Water, Apple Juice, Gatorade, Black Coffee,tea or white soda. (NO Dairy, Milk Products, Creamer, Red Gatorade or Ingham Juice) Nothing by mouth the 4 hours prior to your procedure, NOT EVEN WATER. [place] your teeth morning of procedure. Use mouth wash if available. Do not swallow any liquids whencleansing your mouth. Shower with Antibacterial soap followed by Hibiclens soap. After showering, do not apply any hair products, lotions, colognes, oils, deodorant, powder, or make-up. Expect to remove wigs, dentures/partials, contact lenses, piercings, hearing aids, and prostheses before surgery. Do not wear jewelry to the hospital on the day of surgery. Bring glasses and hearing aids (with cases for both), inhalers, and CPAP/BiPAP machine day of surgery. If you will be admitted to the hospital after surgery, feel free to bring a toiletry bag. Medication Instructions: Pre-Surgery Instructions Medication Instructions aspirin 81 mg enteric coated tablet Hold as instructed by your provider cholecalciferol (VITAMIN D-3) 5,000 unit capsule Hold the morning of surgery cyanocobalamin (Vitamin B-12) 2,000 mcg tablet Hold the morning of surgery Entresto 24-26 mg tablet Hold the morning of surgery famotidine (PEPCID) 40 mg tablet Take as prescribed Farxiga 10 mg tablet Hold the morning of surgery furosemide (LASIX) 20 mg tablet Hold the morning of surgery metoprolol XL (TOPROL-XL) 50 mg extended release tablet Take morning of surgery multivitamin tablet Stop taking 7 days prior to surgery pantoprazole DR (PROTONIX) 40 mg EC tablet Hold the morning of surgery spironolactone (ALDACTONE) 25 mg tablet Hold the morning of surgery VISITOR POLICY: Patients in outpatient/surgical settings may have 2 dedicated visitors; must be over the age of 14. The Coffee shop has limited choices. Please bring snacks and something to drink on day of surgery. GENERAL INSTRUCTIONS: Please call us with any new prescriptions so that we can give you instructions. DO NOT drink alcohol, smoke cigarettes/vapes/e-cigarettes during the 12 hours prior to your surgery. DO NOT smoke marijuana or take marijuana edibles for minimum 3 days, ideally 2 weeks prior to your surgery if smoking. DO NOT take illicit/illegal drugs of any kind for 7 days prior to surgery. Arrange for a friend/family member or official medical transportation to pick you up from the hospital and drive you home. You will not be allowed to drive yourself home. Non-medical transport services (buses, taxis, or a [employer] company such as [employer] or [employer], etc.) are NOT allowed. A responsible adult must be with you for 24 hours after your procedure. If you are unable to make arrangements for transportation and have a responsible adult with you for 24 hours after your procedure, your procedure will need to be rescheduled. Call your surgeon if you develop a rash, fever, cold, Urinary Tract Infection, or any other signs/symptoms of infection prior to surgery. Your surgery may need to be postponed. MORNING OF SURGERY PLEASE BRING: Photo ID and Insurance card. Any questions/concerns, please call the [facility] at [phone]. Morning of surgery question/concerns, please call Outpatient Surgery at [phone]. Thank You for choosing [facility]'s Surgery department! Showering Instructions: Before surgery you can play an important role in your own health. Showeringwith the antiseptic soap solution CHG (chlorhexidine gluconate) or Hibiclens greatly reduces the number of germs on the skin. You may picker a bottle of this soap from the front office administrator at [facility] for no charge or at your expense from local drugstores. Please read all of these instructions first and then follow them closely. DO NOT use the antiseptic solution if you are allergic to CHG (chlorhexidine gluconate). If you areallergic use an antibacterial soap, such as Dial. Avoid shaving or the use of any topical hair removers at or around the surgical site. DO NOT use antiseptic solution on your face, head or neck. Do not use on hair. Do not allow solution to get in eyes, ears, nose or mouth. DO NOT use in genital area. If contact in these areas rinse immediately and thoroughly with plenty of water. If rash, redness, itching or any other symptoms of allergy occur, stop use immediately and call your physician or the [place] [facility] ( ) right away if symptoms persist. Please refer to the product label for full drug labeling and product warnings. The solution is for your use only. Do not give it to anyone else. Night before surgery: Wash and rinse your hair first using your normal shampoo. Make sure you completely rinse from hair and body. Shower with an antibacterial soap washing your entire body. Use clean washcloth only. Then shower from the neck down with the antiseptic solution. Use half (1/2) of the solution the night before surgery and save the other half for you morning shower. Apply the solution to a second clean wet washcloth. Turn the water off in the shower or move away from the water spray to avoid rinsing the solution off or splashing. Lather your entire body from the NECK DOWN. Never use the solution near your eyes, ears, nose, mouth or genitals. Gently wash your body and focus the scrub on the areas where the incision(s) will be located for about 3 minutes. Avoiding scrubbing the skin too hard. Once you have finished, rinse the soap solution off of your body completely. DO NOT wash with regular soap after using the solution. Pat yourself dry with a clean, freshly laundered towel. DO NOT apply powders, deodorants, creams, hair products and make up. Sleep with freshly laundered pajamas on freshly laundered bedding. Do not have contact with pets. Morning of surgery: Please repeat above instructions Dress with loose fitting, comfortable, freshly laundered clothing. documented in this encounter Plan of Treatment Pending Results Name Type Priority Associated Diagnoses Date /Time Surgical pathology Pathology and Cytology Routine Right groin mass 11/04/2024 10:19 AM CDT Scheduled Orders Name Type Priority Associated Diagnoses Order Schedule Surgical pathology Pathology and Cytology Timed Right groin mass Release Upon Ordering for 1 Occurrences starting 11/04/2024 documented as of this encounter Procedures Procedure Name Priority Date/Time Associated Diagnosis Comments BIOPSY LYMPH NODE - GROIN 11/04/2024 8:24 AM CDT MASS RIGHT GROIN POCT CREATININE FOR CONTRAST EVALUATION Routine 11/04/2024 7:22 AM CDT POC BLOOD GAS AND CHEMISTRIES, VENOUS Routine 11/04/2024 7:19 AM CDT documented in this encounter Results * POCT creatinine for contrast evaluation (11/04/2024 7:22 AM CDT) Creatinine POC 1.00 0.60 - 1.10 mg/dL Comment:Testing performed by : [address] [id number] Blood 11/04/2024 7:22 AM CDT 11/04/2024 7:22 AM CDT Luis Angel Queen MD POINT OF CARE TEST OR DERABLES Final Result Performing Organization Address City/State/[facility] Co de Phone Number [facility] Department [place] [address] * POC Blood Gas and Chemistries, Venous - (11/04/2024 7:19 AM CDT) pH,acacia POC 7.38 7.32 - 7.43 Comment:Testing performed by : [address] [address] pCO2, acacia POC 42 40 - 50 mmHg STEFANO Comment:Testing performed by : [address] [address] pO2,acacia POC 46 mmHg STEFANO Comment: Interpretive Data No reference range established. Current interpretive data was last revised 2020. Testing performed by: [address] [address] HCO3, acacia (Calc) POC 25 20 - 30 mmol/L STEFANO Comment:Testing performed by : [address] [address] Base excess, acacia POC 0 mmol/L STEFANO Comment: Interpretive Data No reference range established. Current interpretive data was last revised 2020. Testing performed by: [address] [address] Hemoglobin, acacia POC 13.9 11.9 - 15.5 g/dL STEFANO Comment:Testing performed by : [address] [address] Hematocrit, acacia POC 41.0 35.6 - 45.5 % STEFANO Comment:Testing performed by : [address] [address] Sodium, acacia POC 137 135 - 145 mmol/L STEFANO Comment:Testing performed by : [address] [address] Potassium, acacia POC 4.3 3.3 - 4.9 mmol/L STEFANO Comment: Interpretive Data This method is not able to assess for hemolysis, which may falsely increase potassium concentrations. If further testing is needed to evaluate this result, consider in-laboratory plasma potassium. Current Interpretive Data was last revised on 2022. Testing performed by: [address] [address] Glucose, acacia POC 105 70 - 199 mg/dL STEFANO Comment:Testing performed by : [address] [address] Ionized Calcium, acacia POC 4.90 4.50 - 5.10 mg/dL STEFANO Comment:Testing performed by : [address] [address] Blood 11/04/2024 7:19 AM CDT 11/04/2024 7:19 AM CDT Luis Angel Queen MD LAB POCT ORDERABLES - DEVICE Final Result STEFANO ESTEBAN [address] [facility] Department of Laboratories [place], [place] [id number] documented in this encounter Visit Diagnoses Diagnosis Right groin mass documented in this encounter Administered Medications Inactive Administered Medications - up to 3 most recent administrations Medication Order MAR Action Action Date Dose Rate Site acetaminophen (TYLENOL) tablet 975 mg 975 mg (rounded from 1,000 mg), oral, Once, On Sat11/04/24 at 0715, For 1 dose, Pre-Op, Indications: Pre-Emptive AnalgesiaIndications:Pre-Emptive Analgesia Given 11/04/2024 7:15 AM CDT 975 mg famotidine (PEPCID) tablet 20 mg 20 mg, oral, Once, On Sat11/04/24 at 0715, For 1 dose, Pre-Op, Indications: gastroesophageal reflux diseaseIndications:gastroesophagea l reflux disease Given 11/04/2024 7:15 AM CDT 20 mg fentaNYL (SUBLIMAZE) preservative free injection 25 mcg 25 mcg, intravenous, Every 10 min PRN, For uncontrolled pain use in the pacu only, Starting on Sat11/04/24 at 1118, Phase I, Then proceed to PACU 1st line analgesic., Indications: PainIndications:Pain Given 11/04/2024 11:43 AM CDT 25 mcg fentaNYL (SUBLIMAZE) preservative free injection 50 mcg 50 mcg, intravenous, Once as needed, breakthrough pain, Starting on Sat11/04/24 at 1118, For 1 dose, Phase I, Administer for uncontrolled or increasing pain while in PACU only. Given 11/04/2024 11:52 AM CDT 50 mcg HYDROmorphone (DILAUDID) injection 0.4 mg 0.4 mg, intravenous, Administer over 2 Minutes, Every 10 min PRN, 2nd line for pain, Starting on Sat11/04/24 at 1118, Phase I, May administer 10 mintes after 2nd dose of 1st line analgesic agent for uncontrolled or increasing pain. Revert to 1st line dose if POSS of 3. Notify Anesthesiologist if total PACU dose reaches 2 mg and pain score 5/10 or more., Indications: PainIndications:Pain Given 11/04/2024 12:07 PM CDT 0.4 mg Given 11/04/2024 11:53 AM CDT 0.4 mg Given 11/04/2024 11:43 AM CDT 0.4 mg ketorolac (TORADOL) 30 mg/mL injection 15 mg 15 mg, intravenous, Once, On Sat11/04/24 at 1200, For 1 dose, Phase I, For Adult IV push, administer over 15 seconds Given 11/04/2024 11:29 AM CDT 15 mg Lactated Ringer's (LR) infusion 30 mL/hr, intravenous, Continuous, Starting on Sat11/04/24 at 0715, Pre-Op New Bag 11/04/2024 11:55 AM CDT 30 mL/hr 30 mL/ hr Restarted 11/04/2024 8:24 AM CDT New Bag 11/04/2024 7:16 AM CDT 30 mL/hr 30 mL/hr ondansetron (ZOFRAN) injection 4 mg 4 mg, intravenous, Administer over 2 Minutes, Once as needed, nausea, vomiting, Starting on Sat11/04/24 at 1118, For 1 dose, Phase I, Proceed to metoclopramide if ondansetron has been given within the last 6 hours. Given 11/04/2024 1:18 PM CDT 4 mg oxyCODONE (ROXICODONE) tablet 5 mg 5 mg, oral, Once, On Sat11/04/24 at 1200, For 1 dose, Phase I, Indications: PainIndications:Pain Given 11/04/2024 11:29 AM CDT 5 mg documented in this encounter Discontinued Medications Medication Sig Discontinue Reason Start Date End Da te omeprazole (PriLOSEC) 20 mg capsule Therapy completed 05/26/2021 10/13/2024 DivigeL 0.25 mg/0.25 gram (0.1 %) gel in packet APPLY 1 PACKET TO FOREARM OR UPPER THIGH ONCE DAILY Therapy completed 02/07/2022 11/04/2024 documented as of this encounter Active and Recently Administered Medications Times are shown in CDT. Scheduled Medication Order 11/02/2024 11/03/2024 11/04/2024 acetaminophen (TYLENOL) tablet 975 mg (COMPLETED) 975 mg (rounded from 1,000 mg), oral, Once, On Sat11/04/24 at 0715, For 1 dose, Pre-Op, Indications: Pre-Emptive Analgesia 15 (Given - Provid er: Estephanie Purcell RN) ceFAZolin (ANCEF) 1 gram/10 mL in sterile water (premix) 3,000 mg (COMPLETED) 3,000 mg, intravenous, at 600 mL/hr, Administer over 3 Minutes, Once, On Sat11/04/24 at 0715, For 1 dose, Pre-Op, Indications: Prophylaxis, Surgical 08 (Given - Provid er: Vu Sands CRNA) famotidine (PEPCID) tablet 20 mg (COMPLETED) 20 mg, oral, Once, On Sat11/04/24 at 0715, For 1 dose, Pre-Op, Indications: gastroesophageal reflux disease 0715 (Given - Provid er: Estephanie Purcell RN) ketorolac (TORADOL) 30 mg/mL injection 15 mg (COMPLETED) 15 mg, intravenous, Once, On Sat11/04/24 at 1200, For 1 dose, Phase I, For Adult IV push, administer over 15 seconds 1129 (Given - Provid er: Baldemar Cruz RN) oxyCODONE (ROXICODONE) tablet 5 mg (COMPLETED) 5 mg, oral, Once, On Sat11/04/24 at 1200, For 1 dose, Phase I, Indications: Pain 1129 (Given - Provid er: Baldemar Cruz RN) Continuous Medication Order 11/02/2024 11/03/2024 11/04/2024 Lactated Ringer's (LR) infusion 30 mL/hr, intravenous, Continuous, Starting on Sat11/04/24 at 0715, Pre-Op 0716 (New Bag - Prov ider: Estephanie Purcell RN)0823 (Paused - Provider: Vu Sands CRNA - Comment: Switch to gravity)0824 (Restarted - Provider: Vu Sands CRNA)1029 (Anesthesia Volume Adjustment - Provider: Vu Sands CRNA)1155 (New Bag - Provider: Baldemar Cruz RN)1919 (Due: Stopped) PRN Medication Order 11/02/2024 11/03/2024 11/04/2024 BUPivacaine-EPINEPHrine (MARCAINE with EPI) 0.5 %-1:200,000 preservative free injection (CANCELED) As needed, Starting on Sat11/04/24 at 1030, Intra-Op 1030 (Given - Provid er: Luis Angel Queen MD) diphenhydrAMINE (BENADRYL) 50 mg/mL injection 12.5 mg 12.5 mg, intravenous, Every 15 min PRN, itching, Starting on Sat11/04/24 at 1118, For 2 doses, Phase I, Max cumulative dose 50 mg., Indications: Itching fentaNYL (SUBLIMAZE) preservative free injection 25 mcg 25 mcg, intravenous, Every 10 min PRN, For uncontrolled pain use in the pacu only, Starting on Sat11/04/24 at 1118, Phase I, Then proceed to PACU 1st line analgesic., Indications: Pain 1143 (Given - Provid er: Baldemar Cruz RN) fentaNYL (SUBLIMAZE) preservative free injection 50 mcg (COMPLETED) 50 mcg, intravenous, Once as needed, breakthrough pain, Starting on Sat11/04/24 at 1118, For 1 dose, Phase I, Administer for uncontrolled or increasing pain while in PACU only. 1152 (Given - Provid er: Baldemar Cruz RN) hydrALAZINE (APRESOLINE) injection 5 mg 5 mg, intravenous, Administer over 2 Minutes, Every 15 min PRN, high blood pressure, Starting on Sat11/04/24 at 1118, Phase I, Max cumulative dose 20 mg. Dose if systolic BP greater than 180 AND heart rate less than 70. HYDROmorphone (DILAUDID) injection 0.2 mg 0.2 mg, intravenous, Administer over 2 Minutes, Every 10 min PRN, 1st line for pain, Starting on Sat11/04/24 at 1118, Phase I, Switch to 2nd line analgesic order if pain is uncontrolled or increasing after 2 doses. Notify Anesthesiologist if total PACU dose reaches 2 mg and pain score 5/10 or more., Indications: Pain HYDROmorphone (DILAUDID) injection 0.4 mg 0.4 mg, intravenous, Administer over 2 Minutes, Every 10 min PRN, 2nd line for pain, Starting on Sat11/04/24 at 1118, Phase I, May administer 10 mintes after 2nd dose of 1st line analgesic agent for uncontrolled or increasing pain. Revert to 1st line dose if POSS of 3. Notify Anesthesiologist if total PACU dose reaches 2 mg and pain score 5/10 or more., Indications: Pain 1143 (Given - Provid er: Baldemar Cruz RN)1153 (Given - Provider: Baldemar Cruz RN)1207 (Given - Provider: Baldemar Cruz RN) labetaloL (NORMODYNE,TRANDATE) injection 5 mg 5 mg, intravenous, at 30 mL/hr, Administer over 2 Minutes, Every 10 min PRN, high blood pressure, Starting on Sat11/04/24 at 1118, Phase I, Max cumulative dose 20 mg. Dose if systolic blood pressure greater than 180 AND HR greater than 70. lidocaine (PF) (XYLOCAINE) 10 mg/mL (1 %) preservative free injection 2-10 mg 2-10 mg (0.2-1 mL), other, Once as needed, pain with IV placement, Starting on Sat11/04/24 at 0641, For 1 dose, Pre-Op, Administer volume needed to infiltrate IV site. meperidine (DEMEROL) preservative free injection 25 mg 25 mg, intravenous, Administer over 5 Minutes, Every 10 min PRN, shivering, Starting on Sat11/04/24 at 1118, For 1 dose, Phase I, Max cumulative dose 25 mg., Indications: Shivering naloxone (NARCAN) 0.4 mg/mL injection 0.04-0.4 mg 0.04-0.4 mg, intravenous, Once as needed, other, excessive sedation/respiratory depression, Starting on Sat11/04/24 at 1118, For 1 dose, Phase I, Dilute 0.4 mg with 9 mL NS (final concentration 0.04 mg/mL). For respiratory depression (respiratory rate less than 6), administer 0.4 mg IVP over 30 seconds. For excessive sedation administer 0.04 mg (1 mL) every 1 minute until desired level of alertness. For IV, administer over 30 seconds., Indications: Opioid Toxicity ondansetron (ZOFRAN) injection 4 mg (COMPLETED) 4 mg, intravenous, Administer over 2 Minutes, Once as needed, nausea, vomiting, Starting on Sat11/04/24 at 1118, For 1 dose, Phase I, Proceed to metoclopramide if ondansetron has been given within the last 6 hours. 1318 (Given - Provid er: Christopher Patel RN) sodium chloride 0.9% irrigation (CANCELED) As needed, Starting on Sat11/04/24 at 0837, Intra-Op 0837 (Given - Provid er: Luis Angel Queen MD) documented in this encounter Orders Medications Ordered That Alex ht Not Have Been Administered Count Last Ordered Date First Ordered Date BUPivacaine-EPINEPHrine (MAR CHAR with EPI) 0.5 %-1:200,000 preservative free injection 1 11/04/2024 ceFAZolin (ANCEF) 1 gram/10 mL in sterile water (premix) 3,000 mg 1 11/04/2024 diphenhydrAMINE (BENADRYL) 5 0 mg/mL injection 12.5 mg 1 11/04/2024 hydrALAZINE (APRESOLINE) injection 5 mg 1 0 11/04/2024 HYDROmorphone (DILAUDID) injection 0.2 mg 1 11/04/2024 labetaloL (NORMODYNE,TRANDAT E) injection 5 mg 1 11/04/2024 lidocaine (PF) (XYLOCAINE) 1 0 mg/mL (1 %) preservative free injection 2-10 mg 1 11/04/2024 meperidine (DEMEROL) preserv ative free injection 25 mg 1 11/04/2024 naloxone (NARCAN) 0.4 mg/mL injection 0.04-0.4 mg 1 11/04/2024 sodium chloride 0.9% irrigation 1 Diet Count Last Ordered Date First Orde red Date ADULT DISCHARGE DIET 1 11/04/2024 Nursing Count Last Ordered Date First Orde red Date DISCHARGE ACTIVITY 2 11/04/2024 DISCHARGE CALL PROVIDER 6 11/04/2024 DISCHARGE DRESSING 3 11/04/2024 FOLLOW UP WITH ESTABLISHED PROVIDER 1 11/04 Discharge Count Last Ordered Date First Orde red Date DISCHARGE PATIENT 1 11/04/2024 documented in this encounter Care Teams Process Supervisor Relationship Specialty Start Date End Date Mayda Lantigua DO [address] [place] [address] [place] [address] PCP - General Sports Medicine 10/17/18 Joseph Farley MD PhD [address] [facility] [place] [address] Cardiology 04/07/20 Cori Nunez, rubber mixer Failure Coordinator 06/20/21 Chrystal Catherine, rubber mixer Failure Coordinator 06/21/23 Luis Angel Queen MD [address] [place] [id number] Consulting Physician General Surgery 11/04/24 documented as of this encounter
--- OUTSIDE RECORDS SUMMARY | 2024-11-05 14:03 | XMS_ITS | Clinical Summary ---
Author Organization [facility] Care Team Providers Care Green Prize Packer Name Role Phone Unavailable Primary Care Provider Unavailabl e Allergies No known active allergies Social History Tobacco Use Types Packs/Day Years Used Date Smoking Tobacco: Never Assessed Comments Unknown Sex and Gender Information Value Date Recorded Sex Assigned at Not on file Legal Sex Female 8:57 PM CDT Gender Identity Not on file Sexual Orientation Not on file Plan of Treatment Health Maintenance Due Date Last Done Comments Hepatitis C Virus (HCV) Screening 1969 Mammogram 1969 Hepatitis B Immunization (1 of 3 - 19+ 3-dose series) 02/14/1988 Pap Smear 1990 Cervical Cancer Screening (CCS) 1999 HPV/Cotest 1999 Colonoscopy 2014 Colorectal Cancer Screening 2014 Cologuard 2019 Immunochemical Fecal Occult Blood 2019 Pneumococcal Immunization (50+ years) (1 of 1 - PCV) 2019 Zoster Immunization (2 of 2) 10/24/2020 08/29/2020 Influenza Immunization (#1) 02/09/202403/10, 04/03/2021, 03/18/2020, Additional history exists SARS-COV-2 Immunization ( season) 2024 03/27/2022, 11/17/2021, 04/20/2021, Additional history exists Respiratory Syncytial Virus (RSV) Immunization (Adult) (1 - 1-dose 75+ series) 02/14/2044 DTaP/Tdap/Td Immunization Discontinued 08/07/2019 TdaP Immunization Completed 08/07/2019 Meningococcal Immunization (ACWY) Aged Out No longer eligible based on patient's age to complete this topic Pneumococcal Immunization Combined Aged Out No longer eligible based on patient's age to complete this topic Rotavirus Immunization Aged Out No lo nger eligible based on patient's age to complete this topic
--- OUTSIDE RECORDS SUMMARY | 2024-11-05 14:03 | XMS_ITS | Encounter Summary ---
Author Organization [facility] Healthcare Address [address] [place] [address] Care Team Providers Care Central Supply Supervisor Name Role Phone Mayda Lantigua DO Primary Care Provider Joseph Farley MD PhD Unavailable + Cori Nunez RN Unavailable Unavaila Chrystal Coto RN Unavailable Unavailable Luis Angel Queen MD Unavailable Reason for Visit * Auth/Cert (Routine) Specialty Diagnoses / Procedures Referred By Contac t Referred To Contact Diagnoses MASS RIGHT GROIN Procedures ME EXC B9 LESION MRGN XCP SK TG T/A/L 0.6-1.0 CM EXCISIONAL BIOPSY MASS RIGHT GROIN Referral ID Status Reason Start Date Expiration Date Visits Re quested Visits Authorized [id number] 1 1 Encounter Details Date Type Department Care Team (Late st Contact Info) Description 11/04/2024 9:15 AM CDT - 11/04/2024 11:40 AM CDT Surgery [facility] OR [address] [place] [id number] Luis Angel Queen MD [address] [place] [id number] EXCISIONAL BIOPSY MASS RIGHT GROIN Surgery Details Date/Time Status Location OR Service Patient Class Case Cl ass Case Type Trauma Case? 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 Gender Identity Female 06/14/2021 9:07 AM MEDICAL BILLING SUPERVISOR Sexual Orientation Straight 11/25/2023 1: 45 PM CDT documented as of this encounter Last Filed Vital Signs Vital Sign Reading Time Taken Comments Blood Pressure 104/71 11/04/2024 11:35 AM CDT Pulse 74 11/04/2024 11:35 AM CDT Temperature 36.6 C (97.9 F) 11/04/2024 11:35 AM CDT Respiratory Rate 12 11/04/2024 11:35 AM CDT Oxygen Saturation 96% 11/04/2024 11:35 AM CDT Inhaled Oxygen Concentration - - Weight [...] Patient does not drink 11/04/2024 7:07 AM APRYLT Estephanie Purcell RN Q3: How often do [...] WHEN TAKING NARCOTICS (Tylenol with Codeine, Oxycodone, [place] etc.). You may take over the counter [...] of discharge, please call the clinic at [phone] to schedule an appointment for 2 week [...] * Care After General Anesthesia (Discharge Care) (Macanese) * Skin Adhesive Care (Discharge Care) (Macanese) documented in this encounter Medications at Time [...] MD - 11/04/2024 7:53 AM CDT Zelda Peck File 54 y.o. female Date of Service 11/04/2024 Mayda Lantigua DO CC: right groin/labial mass HPI: 54 F [...] 11/04/2024 9:15 AM CDT OP NOTE Zelda Peck File 11/04/2024 Pre-operative Diagnosis: Right groin/labial lipoma Post-operative Diagnosis: Same Procedure: Excisional biopsy of right groin/labial lipoma Anesthesia: General Surgeon: Luis Angel Queen MD Fellmongering Machine Operator: [email or web address] B Truck Driver: Dinora Le RN Scrub: Harry Bhatt [employer] TEACHER: Steph Gill CRNFA; Enriqueta Cooper CRNFA FLOAT: Mallory Chandler RN Anesthesia: General Anesthesiologist: Trung Ulrich MD SLABBER: Vu Sands CRNA Specimen: Right groin mass [...] no intra-operative complications. Luis Angel Queen MD 511:11 AM * Perioperative Nursing Note - Miriam Cheatham RN - 10/20/2024 7:33 AM CDT Images from the original note were not included. * Perioperative Nursing Note - Noel Villalta RN - 10/13/2024 2:53 PM CDT Images from the original note were not included. Pre Anesthesia Testing Perioperative Nursing Note Telephone Preoperative Evaluation - TELEPHONE ONLY, NO PHYSICAL EXAM - [facility] Date: 10/13/24 PAT RN completed assessment with [...] enteric coated tablet -- -- -- Bang Ruelsa MD cholecalciferol (VITAMIN D-3) 5,000 unit capsule [...] from the original note were not included. [address] [address] Procedure Date: 10/26/2024 Procedure: EXCISIONAL BIOPSY MASS [...] If you would like to come to [facility] we can give you a bottle forFREE. Hours: Saturday - Saturday 8 AM - 4:30PM. Go to the main entrance and ask the front end loader operator for Hibiclens Soap. If you go to [facility], park underneath Entrance A drive thru and call [phone] and ask for the surgery soap. We [...] Dairy, Milk Products, Creamer, Red Gatorade or [place] Juice) Nothing by mouth the 4 hours prior to your procedure, NOT EVEN WATER. [place] your teeth morning of procedure. Use mouth [...] Non-medical transport services (buses, taxis, or a FOBO company such as [employer] or [employer], etc.) are NOT allowed. A responsible adult [...] please call the Admission Testing Center at [phone]. Morning of surgery question/concerns, please call Outpatient Surgery at [phone]. Thank You for choosing [facility]'s Surgery department! Showering Instructions: Before surgery you can play an important role in your own health. Showeringwith the antiseptic soap solution CHG (chlorhexidine gluconate) or Hibiclens greatly reduces the number of germs on the skin. You may pecan picker a bottle of this soap from the front end loader operator at [facility] for no charge or at your expense [...] immediately and call your physician or the [place] [facility] ( ) right away [...] - 1.10 mg/dL Comment:Testing performed by : [address] [address] Blood 11/04/2024 7:22 AM CDT 11/04/2024 7:22 AM CDT us Luis Angel Queen MD POINT OF CARE TEST OR DERABLES Final Result [facility] [address] [facility] Department [place] [address] * POC Blood Gas and Chemistries, Venous - (11/04/2024 7:19 AM CDT) pH,acacia POC 7.38 7.32 - 7.43 Comment:Testing performed by : [address] [address] pCO2, acacia POC 42 40 - 50 mmHg STEFANO Comment:Testing performed by : [address] [address] pO2,acacia POC 46 mmHg STEFANO Comment: Interpretive Data No reference range established. Current interpretive data was last revised 2020. Testing performed by: [address] [address] HCO3, acacia (Calc) POC 25 20 - 30 mmol/L STEFANO Comment:Testing performed by : [address] [address] Base excess, acacia POC 0 mmol/L STEFANO Comment: Interpretive Data No reference range established. Current interpretive data was last revised 2020. Testing performed by: [address] [address] Hemoglobin, acacia POC 13.9 11.9 - 15.5 g/dL STEFANO Comment:Testing performed by : [address] [address] Hematocrit, acacia POC 41.0 35.6 - 45.5 % STEFANO Comment:Testing performed by : [address] [address] Sodium, acacia POC 137 135 - 145 mmol/L STEFANO Comment:Testing performed by : [address] [address] Potassium, acacia POC 4.3 3.3 - 4.9 mmol/L STEFANO Comment: Interpretive Data This method is not able to assess for hemolysis, which may falsely increase potassium concentrations. If further testing is needed to evaluate this result, consider in-laboratory plasma potassium. Current Interpretive Data was last revised on 2022. Testing performed by: [address] [address] Glucose, acacia POC 105 70 - 199 mg/dL STEFANO Comment:Testing performed by : [address] [address] Ionized Calcium, acacia POC 4.90 4.50 - 5.10 mg/dL STEFANO Comment:Testing performed by : [address] [address] Blood 11/04/2024 7:19 AM CDT 11/04/2024 7:19 AM CDT Luis Angel Queen MD LAB POCT ORDERABLES - DEVICE Final Result ST[facility]ANO [address] [facility] Department of Laboratories [place], [place] [id number] documented in this encounter Visit Diagnoses Not on filedocumented in this encounter Administered Medications Inactive Administered Medications - up to 3 most recent administrations Medication Order MAR Action Action Date Dose Rate Site acetaminophen (TYLENOL) tablet 975 mg 975 mg (rounded from 1,000 mg), oral, Once, On Sat11/04/24 at 0715, For 1 dose, Pre-Op, Indications: Pre-Emptive AnalgesiaIndications:Pre-Empt isrrael Analgesia Given 11/04/2024 7:15 AM CDT 975 mg BUPivacaine-EPINEPHrine (MARCAINE with EPI) 0.5 %-1:200,000 preservative free injection As needed, Starting on Sat11/04/24 at 1030, Intra-Op Given 11/04/2024 10:30 AM CDT 23 mL Surgical Site famotidine (PEPCID) tablet 20 mg 20 mg, oral, Once, On Sat11/04/24 at 0715, For 1 dose, Pre-Op, Indications: gastroesophageal reflux diseaseIndications:gastroesop hageal reflux disease Given 11/04/2024 7:15 AM CDT [...] Given 11/04/2024 11:29 AM CDT 5 mg sodium chloride 0.9% irrigation As needed, Starting on Sat11/04/24 at 0837, Intra-Op Given 11/04/2024 8:37 AM CDT 500 mL Surgical Site documented in this encounter Discontinued Medications Medication [...] For 1 dose, Pre-Op, Indications: Pre-Emptive Analgesia 0715 (Given - Provid er: Estephanie Purcell RN) ceFAZolin (ANCEF) 1 gram/10 mL in sterile water (premix) 3,000 mg (COMPLETED) 3,000 mg, intravenous, at 600 mL/hr, Administer over 3 Minutes, Once, On Sat11/04/24 at 0715, For 1 dose, Pre-Op, Indications: Prophylaxis, Surgical 0831 (Given - Provid er: Vu Sands CRNA) [...] Count Last Ordered Date First Ordered Date ceFAZolin (ANCEF) 1 gram/10 mL in sterile [...] 0.4 mg/mL injection 0.04-0.4 mg 1 11/04/2024 Diet Count Last Ordered Date First Orde red Date ADULT DISCHARGE DIET 1 11/04/2024 Nursing Count Last Ordered Date First Orde red Date DISCHARGE ACTIVITY 2 11/04/2024 DISCHARGE CALL PROVIDER 6 11/04/2024 DISCHARGE DRESSING 3 11/04/2024 FOLLOW UP WITH ESTABLISHED PROVIDER 1 11/04 Discharge Count Last Ordered Date First Orde red Date DISCHARGE PATIENT 1 11/04/2024 documented in this encounter Care Teams Central Supply Supervisor Relationship Specialty Start Date End Date Mayda Lantigua DO [address] [place] [address] [place] [address] PCP - General Sports Medicine 10/17/18 Joseph Farley MD PhD [address] [place] [address] Cardiology 04/07/20 Cori Nunez, printing roller handler Failure Coordinator 06/20/21 Chrystal Catherine, printing roller handler Failure Coordinator 06/21/23 Luis Angel Queen MD [address] [place] [address] Consulting Physician General Surgery 11/04/24 documented as of this encounter
--- OUTSIDE RECORDS SUMMARY | 2024-11-05 14:03 | XMS_ITS | Clinical Summary ---
Author Organization [facility] Address [address] [place] [address] Care Team Providers Care Us Customs And Border Officer Name Role Phone Mayda Lantigua DO Primary Care Provider Joseph Farley MD PhD Unavailable + Cori Nunez RN Unavailable Unavaila Chrystal Coto RN Unavailable Unavailable Luis Angel Queen MD Unavailable Allergies Active Allergy Reactions Criticality Noted Date Comments Latex Rash,Unknown Medium 11/14/2011 Sumatriptan Hallucinations,Unknown Medium 07/07/2012 Other reaction(s): dysesthesia Medications cholecalciferol (VITAMIN D-3) 5,000 unit capsule Take 1 capsule (5,000 Units total) by mouth daily 0 9 Active aspirin 81 mg enteric coated tablet Take 1 tablet (81 mg total) by mouth daily Active multivitamin tablet Take 1 tablet by mouth daily Active cyanocobalamin (Vitamin B-12) 2,000 mcg tablet Take by mouth Active pantoprazole DR (PROTONIX) 40 mg EC tablet Take 1 tablet (40 mg total) by mouth daily 3 Active spironolactone (ALDACTONE) 25 mg tablet TAKE 1 TABLET (25 MG TOTAL) BY MOUTH DAILY. 90 tablet 3 5 06/29/19 26 Active metoprolol XL (TOPROL-XL) 50 mg extended release tablet TAKE 1 TABLET BY MOUTH TWICE A DAY 180 tablet 3 5 Active Entresto 24-26 mg tablet TAKE 1 TABLET BY MOUTH TWICE A DAY 180 tablet 3 5 Active famotidine (PEPCID) 40 mg tablet Take 1 tablet (40 mg total) by mouth daily 5 Active furosemide (LASIX) 20 mg tablet Take 1 tablet (20 mg total) by mouth daily 90 tablet 3 5 Active Farxiga 10 mg tablet TAKE 1 TABLET BY MOUTH EVERY DAY 90 tablet 3 5 Active oxyCODONE (ROXICODONE) 5 mg immediate release tabletIndicatio ns:Pain Take 1 tablet (5 mg total) by mouth every 4 (four) hours as needed for pain 15 tablet 5 Active docusate sodium (DOK) 100 mg tabletIndicatio ns:constipation Take 1 tablet (100 mg total) by mouth 2 (two) times a day for 10 days 20 tablet 5 11/15/19 25 Active ibuprofen (ADVIL,MOTRIN) 800 mg tablet Take 1 tablet (800 mg total) by mouth every 8 (eight) hours as needed for pain 90 tablet 5 Active omeprazole (PriLOSEC) 20 mg capsule 1 10/14/19 25 Discontinu ed(Therapy completed) DivigeL 0.25 mg/0.25 gram (0.1 %) gel in packet APPLY 1 PACKET TO FOREARM OR UPPER THIGH ONCE DAILY 2 11/05/19 25 Discontinu ed(Therapy completed) Active Problems Problem Noted Date Diagnosed Date LVH (left ventricular hypertrophy) 10/06/2024 NSVT (nonsustained ventricular tachycardia) 12/08 Chronic systolic heart failure 10/31/2018 Nonischemic cardiomyopathy 10/30/2018 Overview (10/31/2018): Dx in 2004, ? Myocarditis EF ~25% initially, 45-50% more recently Hypothyroidism (acquired) 10/30/2018 Arthritis 10/30/2018 Vertigo 11/18/2017 Overview (10/06/2024): Date Onset: 11/18/2017 Anemia 10/23/2014 Essential hypertension 07/07/2012 Overview (10/06/2024): Note: Uncontrolled Gastro-esophageal reflux disease without esophag itis 11/14/2011 Encounters Date Type Department Care Team Description 11/04/2024 9:15 AM CDT - 11/04/2024 11:40 AM CDT Surgery [facility] OR [address] [place] [address] Luis Angel Queen MD EXCISIONAL BIOPSY MASS RIGHT GROIN 11/04/2024 8:24 AM CDT Anesthesia Event [facility] OR [address] [place] [address] Trung Ulrich MD Morris, Mark C., MD 11/04/2024 6:40 AM CDT - 11/04/2024 3:07 PM CDT Hospital Encounter [facility] OR [address] [place] [address] Luis Angel Queen MD Right groin mass Discharge Disposition: Discharge to home or self care 10/19/2024 4:07 PM CDT - 10/19/2024 11:59 PM CDT Hospital Encounter [facility] [address] [place] [address] Benign lipomatous neoplasm of skin and subcutaneous tissue of trunk Discharge Disposition: Discharge to home or self care 10/16/2024 10:20 AM CDT Pre-Admission Testing [facility] Pre Admit Testing [address] [place] [address] Pre-op testing 10/15/2024 Orders Only [facility] Pre Admit Testing [address] [place] [address] Sophie Lima RN Pre-op testing (Primary Dx) 10/05/2024 Telephone [facility] Transplant Heart [address] [facility] [address] [phone] [place] [address] Yanique Roberts from Last 3 Months Surgical History Surgery Date Site/Laterality Comments THYROIDECTOMY, PARTIAL HYSTERECTOMY total CHOLECYSTECTOMY DIAGNOSTIC LAPAROSCOPY CYSTECTOMY x3, right wrist twice, neck KYPHOPLASTY APPENDECTOMY Medical History Medical History Date Comments Nonischemic cardiomyopathy (HCC) 10/30/2018 Hypothyroidism (acquired) 10/30/2018 Arthritis 10/30/2018 Anemia 10/23/2014 Essential hypertension 07/07/2012 Note: Unc ontrolled Gastro-esophageal reflux dis ease without esophagitis 11/14/2011 Vertigo 11/18/2017 Date Onset: 11/08 LVH (left ventricular hypertrophy) 10/06/2024 Obesity Motion sickness Family History Medical History Relation Name Comments COPD Father Emphysema Father Heart disease Father Hypertension Father Heart disease Mother Relation Name Status Comments Father Mother Social History Tobacco Use Types Packs/Day Years Used Date Smoking Tobacco: Never Smokeless Tobacco: Never Tobacco Cessation:Counseling Given: Not Answered Alcohol Use Standard Drinks/Week Comments Yes 0 [...] on file 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 Gender Identity Female 06/14/2021 9:07 AM HYDRAULIC AUTO JACK MECHANIC Sexual Orientation Straight 11/25/2023 1: 45 PM CDT Obstetrics History Last Filed Vital Signs Vital Sign Reading Time Taken Comments Blood Pressure 101/68 11/04/2024 2:10 PM CDT Pulse 69 11/04/2024 3:00 PM CDT Temperature 36.4 C (97.5 F) 11/04/2024 12:40 PM CDT Respiratory Rate 16 11/04/2024 2:10 PM CDT Oxygen Saturation 100% 11/04/2024 3:00 PM CDT Inhaled Oxygen Concentration - - Weight 122.5 kg (270 lb) 10/19/2024 4:15 PM CDT Height 180.3 cm (5' 11) 10/19/2024 4:15 PM CDT Body Mass Index 37.66 10/19/2024 4:15 PM CDT Plan of Treatment Health Maintenance Due Date Last Done Comments Breast Cancer Screening-Mammogram 1969 Colon Cancer Screening-Colonoscopy 1969 Depression Screening 1969 Hepatitis C Screening 1969 Hepatitis B Screening 1987 Regular Well Visit/Exam 18-64 1987 Pneumococcal vaccine <65 (1 of 2 - PCV) 02/14/1988 Zoster Vaccine (2 of 2) 10/24/2020 08/29/2020 Covid-19 Vaccine (4 - 2023-2 5 season) 2024 04/20/2021, 08/10/2020, 07/13/2020 DTaP/Tdap/Td Vaccine (2 - Td or Tdap) 08/07/2029 08/07/2019 Influenza Vaccine Completed 04/06/2024, , 03/27/2022, Additional history exists Procedures Procedure Name Priority Date/Time Associated Diagnosis Comments DE AN PROCEDURE PLACEHOLDER Routine 11/04/2024 8:34 AM CDT DE AN ELECTIVE SUPRAGLOTTIC AIRWAY Routine 11/04/2024 8:34 AM CDT BIOPSY LYMPH NODE - GROIN 11/04/2024 8:24 AM CDT MASS RIGHT GROIN POCT CREATININE FOR CONTRAST EVALUATION Routine 11/04/2024 7:22 AM CDT POC BLOOD GAS AND CHEMISTRIES, VENOUS Routine 11/04/2024 7:19 AM CDT MRI PELVIS W WO CONTRAST Schedule Routine, Read Routine (OP Routine) 10/19/2024 5:33 PM CDT Benign lipomatous neoplasm of skin and subcutaneous tissue of trunk ECG 12-LEAD Routine 10/16/2024 10:21 AM CDT Pre-op testing from Last 3 Months Results * DE AN ELECTIVE SUPRAGLOTTIC AIRWAY, DE AN PROCEDURE PLACEHOLDER (11/04/2024 8:34 AM CDT) Narrative Vu Sands CRNA - 11/04/2024 8:34 AM CDT Vu Sands CRNA 11/04/2024 8:34 AM Airway Patient location: OR Urgency: elective Indications for airway management: anesthesia Difficult airway: no Staff: Placed by: AMOL: Vu Sands CRNA Emergent airway documentation: Risks and benefits discussed: yes Consent obtained: yes Consent given by: patient Airway prep: Preoxygenated: yes Patient position: sniffing Mask difficulty assessment: 0 - not attempted Spontaneous ventilation during airway: absent Sedation level during airway: deep Final airway details: Final airway type: supraglottic airway Final supraglottic airway: classic SGA size: 4 Number of attempts: 1 Trung Ulrich MD ANESTHESIA ORDERABLES Final Resu lt * POCT creatinine for contrast evaluation (11/04/2024 7:22 AM CDT) Creatinine POC 1.00 0.60 - 1.10 mg/dL Comment:Testing performed by : [address] [address] Blood 11/04/2024 7:22 AM CDT 11/04/2024 7:22 AM CDT Luis Angel Queen MD POINT OF CARE TEST OR DERABLES Final Result Performing Organization Address City/State/[facility] Co de Phone Number STEFANO [address] [facility] Department of Laboratories [place] [phone] * POC Blood Gas and Chemistries, Venous - (11/04/2024 7:19 AM CDT) pH,acacia POC 7.38 7.32 - 7.43 Comment:Testing performed by : [address] [address] pCO2, acacia POC 42 40 - 50 mmHg STEFANO ESTEBAN Comment:Testing performed by : [address] [address] pO2,acacia POC 46 mmHg STEFANO ESTEBAN Comment: Interpretive Data No reference range established. Current interpretive data was last revised 2020. Testing performed by: [address] [address] HCO3, acacia (Calc) POC 25 20 - 30 mmol/L STEFANO Comment:Testing performed by : [address] [address] Base excess, acacia POC 0 mmol/L STEFANO Comment: Interpretive Data No reference range established. Current interpretive data was last revised 2020. Testing performed by: [address] [address] Hemoglobin, acacia POC 13.9 11.9 - 15.5 g/dL STEFANO Comment:Testing performed by : [address] [address] Hematocrit, acacia POC 41.0 35.6 - 45.5 % STEFANO Comment:Testing performed by : [address] [address] Sodium, acacia POC 137 135 - 145 mmol/L STEFANO Comment:Testing performed by : [address] [address] Potassium, acacia POC 4.3 3.3 - 4.9 mmol/L STEFANO Comment: Interpretive Data This method is not able to assess for hemolysis, which may falsely increase potassium concentrations. If further testing is needed to evaluate this result, consider in-laboratory plasma potassium. Current Interpretive Data was last revised on 2022. Testing performed by: [address] [address] Glucose, acacia POC 105 70 - 199 mg/dL STEFANO Comment:Testing performed by : [address] [address] Ionized Calcium, acacia POC 4.90 4.50 - 5.10 mg/dL STEFANO Comment:Testing performed by : [address] [address] Blood 11/04/2024 7:19 AM CDT 11/04/2024 7:19 AM CDT Luis Angel Queen MD LAB POCT ORDERABLES - DEVICE Final Result [facility] [address] [facility] Department [place] [address] * MRI Pelvis W WO Contrast (10/19/2024 5:33 PM CDT) Anatomical Region Laterality Modality Pelvis N/A Magnetic Resonan ce 10/20/2024 10:5 8 AM CDT Impressions 10/20/2024 11:25 AM CDT 1. No suspicious mass lesion or lymphadenopathy in the pelvis. Dictated by: Colton Lowe M.D. The radiology attending physician has personally reviewed this study, and had reviewed and/or edited this written report and agrees with it. Electronically signed by: Liang Ware M.D. Narrative 10/20/2024 11:25 AM CDT EXAMINATION: MRI PELVIS W WO CONTRAST HISTORY: [...] diverticulosis without diverticulitis. Changes of prior hysterectomy. Procedure Note Liang Ware MD - 10/20/2024 EXAMINATION: MRI PELVIS W WO CONTRAST HISTORY: [...] diverticulosis without diverticulitis. Changes of prior hysterectomy. IMPRESSION: 1. No suspicious mass lesion or lymphadenopathy in the pelvis. Dictated by: Colton Lowe M.D. The radiology attending physician has personally reviewed this study, and had reviewed and/or edited this written report and agrees with it. Electronically signed by: Liang Ware M.D. us Luis Angel Queen MD IMG MRI PROCEDURES Fi nal Result * ECG 12 lead (10/16/2024 10:21 AM CDT) Ventricular Rate EKG/Min 79 BPM [facility] Atrial Rate 79 BPM [facility] DE-Interval (MSEC) 188 ms [facility] QRS-Interval (MSEC) 82 ms [facility] QT-Interval (MSEC) 418 ms [facility] QTc 479 ms [facility] P [place] 7 degrees [facility] R [place] -10 degrees [facility] T [place] 3 degrees [facility] Diagnosis Normal sinus rhythm Low voltage QRS Cannot rule out Anterior infarct , age undetermined Abnormal ECG No previous ECGs available Confirmed by TOMI CASTILLO M.D. ([id number]) on 10/17/2024 8:20:41 AM [facility] 10/16/2024 10:2 1 AM CDT 10/17/2024 8:20 AM CDT Mikie Whitfield MD ECG ORDERABLES Final Result [facility] from Last 3 Months Insurance [facility] Address: [facility] [address] [place] [address] [facility] [employer] Address: [address] [address] [place] [address] [employer] [facility] [employer]PP[facility] Address: [address] [facility] [employer] Address: [address] [address] [address] [facility] [employer] Address: [address] [address] Care Teams Us Customs And Border Officer Relationship Specialty Start Date End Date Mayda Lantigua DO [address] [place] [address] [place] [address] PCP - General Sports Medicine 10/17/18 Joseph Farley MD PhD [address] [place] [address] [place] [address] Cardiology 04/07/20 Cori Nunez, research development manager Failure Coordinator 06/20/21 Chrystal Catherine, research development manager Failure Coordinator 06/21/23 Luis Angel Queen MD [address] [place] [address] Consulting Physician General Surgery 11/04/24
--- OUTSIDE RECORDS SUMMARY | 2024-11-05 14:03 | XMS_ITS | Referral Summary ---
Author Organization [facility] Address [address] [place] [address] Care Team Providers Care Bead Trimmer Name Role Phone Mayda Lantigua DO Primary Care Provider Joseph Farley MD PhD Unavailable + Coir Nunez RN Unavailable Unavaila Chrystal Coto RN Unavailable Unavailable Luis Angel Queen MD Unavailable Encounters Date Type Department Care Team Description 11/04/2024 9:15 AM CDT - 11/04/2024 11:40 AM CDT Surgery [facility] OR [address] [place] [address] Luis Angel Queen MD EXCISIONAL BIOPSY MASS RIGHT GROIN 11/04/2024 8:24 AM CDT Anesthesia Event [facility] OR [address] [place] [id number] Trung Ulrich MD Morris, Mark C., MD 11/04/2024 6:40 AM CDT - 11/04/2024 3:07 PM CDT Hospital Encounter [facility] OR [address] [place] [id number] Luis Angel Queen MD Right groin mass Discharge Disposition: Discharge to home or self care 10/19/2024 4:07 PM CDT - 10/19/2024 11:59 PM CDT Hospital Encounter [facility] [address] [place] [address] Benign lipomatous neoplasm of skin and subcutaneous tissue of trunk Discharge Disposition: Discharge to home or self care 10/16/2024 10:20 AM CDT Pre-Admission Testing [facility] Pre Admit Testing [address] [place] [address] Pre-op testing 10/15/2024 Orders Only [facility] Pre Admit Testing [address] [place] [id number] Sophie Lima RN Pre-op testing (Primary Dx) 10/05/2024 Telephone 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 Sexual Orientation Straight 11/25/2023 1: 45 PM CDT Last Filed Vital Signs Vital Sign Reading [...] 10/19/2024 4:15 PM CDT Plan of Treatment Not on file Procedures Procedure Name Priority Date/Time Associated Diagnosis Comments AK AN PROCEDURE PLACEHOLDER Routine 11/04/2024 8:34 AM CDT AK AN ELECTIVE SUPRAGLOTTIC AIRWAY Routine 11/04/2024 8:34 [...] testing from Last 3 Months Results * AK AN ELECTIVE SUPRAGLOTTIC AIRWAY, AK AN PROCEDURE PLACEHOLDER (11/04/2024 8:34 AM CDT) Narrative Vu Sands CRNA - 11/04/2024 8:34 AM CDT Vu Sands CRNA 11/04/2024 8:34 AM Airway Patient location: OR Urgency: elective Indications for airway management: anesthesia Difficult airway: no Staff: Placed by: GAME ROOM ATTENDANT: Vu Sands CRNA Emergent airway documentation: Risks [...] - 1.10 mg/dL Comment:Testing performed by : [facility], [address] [place] [address]., [id number] Blood 11/04/2024 7:22 AM CDT 11/04/2024 7:22 AM CDT us Luis Angel Queen MD POINT OF CARE TEST OR DERABLES Final Result [facility] [address] [facility] [place] [address] * POC Blood Gas and Chemistries, Venous - (11/04/2024 7:19 AM CDT) [facility] Signature pH,acacia POC 7.38 7.32 - 7.43 Comment:Testing performed by : [address] [address] pCO2, acacia POC 42 40 - 50 mmHg STEFANO Comment:Testing performed by : [address] [address] pO2,acacia POC 46 mmHg [facility] Comment: Interpretive Data No reference range established. Current interpretive data was last revised 2020. Testing performed by: [address], [place]., [address] HCO3, acacia (Calc) POC 25 20 - 30 mmol/L STEFANO Comment:Testing performed by : [address], [place]., [address] Base excess, acacia POC 0 mmol/L STEFANO Comment: Interpretive Data No reference range established. Current interpretive data was last revised 2020. Testing performed by: [address] [address] Hemoglobin, acacia POC 13.9 11.9 - 15.5 g/dL STEFANO Comment:Testing performed by : [address] [address] Hematocrit, acacia POC 41.0 35.6 - 45.5 % STEFANO Comment:Testing performed by : [address] [address] Sodium, acacia POC 137 135 - 145 mmol/L [facility] Comment:Testing performed by : [address] [address] Potassium, acacia POC 4.3 3.3 - 4.9 mmol/L STEFANO Comment: Interpretive Data This method is not able to assess for hemolysis, which may falsely increase potassium concentrations. If further testing is needed to evaluate this result, consider in-laboratory plasma potassium. Current Interpretive Data was last revised on 2022. Testing performed by: [address] [address] Glucose, acacia POC 105 70 - 199 mg/dL STEFANO ESTEBAN Comment:Testing performed by : [facility], [address] [place] [address]., [address] Ionized Calcium, acacia POC 4.90 4.50 - 5.10 mg/dL STEFANO ESTEBAN Comment:Testing performed by : [facility], [address] [place] [address]., [address] Blood 11/04/2024 7:19 AM CDT 11/04/2024 7:19 AM CDT us Luis Angel Queen MD LAB POCT ORDERABLES - DEVICE Final Result [facility] [address] [facility] Department [place] [address] * MRI Pelvis W WO Contrast (10/19/2024 [...] it. Electronically signed by: Liang Ware M.D. Luis Angel Queen MD IMG MRI PROCEDURES Fi nal Result * ECG 12 lead (10/16/2024 10:21 AM CDT) Ventricular Rate EKG/Min 79 BPM [facility] Atrial Rate 79 BPM [facility] AK-Interval (MSEC) 188 ms [facility] QRS-Interval (MSEC) 82 ms [facility] QT-Interval (MSEC) 418 ms [facility] QTc 479 ms [facility] P Mercer 7 degrees [facility] R Mercer -10 degrees [facility] T Mercer 3 degrees [facility] Diagnosis Normal sinus rhythm Low voltage QRS Cannot rule out Anterior infarct , age undetermined Abnormal ECG No previous ECGs available Confirmed by TOMI CASTILLO M.D. ([id number]) on 10/17/2024 8:20:41 AM [facility] 10/16/2024 10:2 1 AM CDT 10/17/2024 8:20 AM CDT Mikie Whitfield MD ECG ORDERABLES Final Result [facility] from Last 3 Months Insurance [address] [place] [address] CHO[employer] [place] [id number] [facility] Care Teams Bead Trimmer Relationship Specialty Start Date End Date Lucius LantiguacyDO [address] [place] [address] PCP - General Sports Medicine 10/17/18 Joseph Farley MD PhD [address] [place] [address] Cardiology 04/07/20 Cori Nunez, sugarcane research technician Failure Coordinator 06/20/21 Chrystal Catherine, sugarcane research technician Failure Coordinator 06/21/23 Luis Angel Queen MD [address] [place] [address] Consulting Physician General Surgery 11/04/24
== END 2024-11-05 13:58 | disposition home or self-care (01) ==
LOC: ANHIMG 13:59
PROVIDERS: PCP Family Medicine Sports Medicine; Visit Provider Obstetrics & Gynecology
DX: Z12.31 Encounter for screening mammogram for malignant neoplasm of breast (principal)
CPT/HCPCS: 77063; 77067